=== PATIENT | female | born 1955 | race Caucasian/White ===

== ENCOUNTER 2020-11-11 09:18 | Outpatient (CLI) | payer MEDICARE, SELFPAY ==
--- NOTE | ~2020-11-11 | MM_ITS ---
EXAMINATION: MM screening [facility] BI w sukhjinder HISTORY: Screening mammogram TECHNIQUE: Craniocaudal and mediolateral oblique 3-D tomosynthesis images were obtained and synthetic 2-D images were generated. CAD analysis was submitted and interpreted. COMPARISON: 09/10/2018, 04/08/2017, 11/15/2015 BREAST PARENCHYMAL COMPOSITION: The breasts are heterogeneously dense, which may obscure small masses . FINDINGS: There is no evidence of suspicious mass, calcification, or architectural distortion to sugg est malignancy in either breast. There has been no suspicious interval change. IMPRESSION: 1. No mammographic evidence of malignancy. 2. Recommend routine screening mammography in one year. BI-RADS Category 1: Negative Reviewed, dictated and finalized at location A.
== END 2020-11-11 09:19 | disposition home or self-care (01) ==
LOC: ANHIMG 09:26
DX: Z12.31 Encounter for screening mammogram for malignant neoplasm of breast (principal)
CPT/HCPCS: 77063; 77067

== ENCOUNTER 2022-03-21 11:48 | Outpatient (CLI) | payer MEDICARE, SELFPAY ==
--- NOTE | ~2022-03-21 | MM_ITS ---
EXAMINATION: MM screening [facility] BI w sukhjinder HISTORY: Screening mammogram TECHNIQUE: Craniocaudal and mediolateral oblique 3-D tomosynthesis images were obtained and synthetic 2-D images were generated. CAD analysis was submitted and interpreted. COMPARISON: 11/11/2020, 09/10/2018, 04/08/2017 BREAST PARENCHYMAL COMPOSITION: The breasts are heterogeneously dense, which may obscure small masses . FINDINGS: There is no suspicious mass, calcification, or architectural distortion to suggest malignan cy in either breast. There has been no suspicious interval change. IMPRESSION: 1. No mammographic evidence of malignancy. 2. Recommend routine screening mammography in one year. BI-RADS Category 1: Negative Reviewed, dictated and finalized at location A.
== END 2022-03-21 11:49 | disposition home or self-care (01) ==
DX: Z12.31 Encounter for screening mammogram for malignant neoplasm of breast (principal)
CPT/HCPCS: 77063; 77067

== ENCOUNTER → 2023-07-24 11:11 | Outpatient (CLI) | payer MEDICARE, SELFPAY ==
--- NOTE | ~2023-07-24 | MM_ITS ---
EXAMINATION: MM screening [facility] BI w sukhjinder HISTORY: Screening mammogram TECHNIQUE: Craniocaudal and mediolateral oblique 3-D tomosynthesis images were obtained and synthetic 2-D images were generated. CAD analysis was submitted and interpreted. COMPARISON: 03/21/2022, 11/11/2020, 09/10/2018 BREAST PARENCHYMAL COMPOSITION: The breasts are heterogeneously dense, which may obscure small masses . FINDINGS: No suspicious mass, calcification, or architectural distortion are identified in either heath ast to suggest malignancy. There has been no suspicious interval change. IMPRESSION: 1. No mammographic evidence of malignancy. 2. Recommend routine screening mammography in one year. BI-RADS Category 1: Negative Reviewed, dictated and finalized at location A. [employer]
== END ==
PROVIDERS: PCP Obstetrics & Gynecology; Visit Provider Obstetrics & Gynecology
DX: Z12.31 Encounter for screening mammogram for malignant neoplasm of breast (principal)
CPT/HCPCS: 77063; 77067

== ENCOUNTER 2024-06-09 08:32 | Emergency (ER) | payer MEDICARE, SELFPAY ==
--- NOTE | 2024-06-09 08:42 | ED.URI ---
HPI - URI/Sore Throat General Chief Complaint: Ear Stated Complaint: left ear pain Time Seen by Provider: 06/09/24 08:42 Source: patient, RN notes reviewed and old records reviewed Mode of arrival: ambulatory Limitations: no limitations History of Present Illness HPI Narrative: 68-year-old female to [facility] with complaint of bilateral impacted earwax. Patient saw primary care doctor on May 21 and was advised to treat at home with water and peroxide. Patient states she has been doing so, however left ear discomfort started yesterday and she became concerned. Patient denies fever, recent illness, decreased hearing, allergies, pertinent medical history. Patient resting comfortably in exam room in no acute distress. Related Data Home Medications ?Medication ?Instructions ?Recorded ?Confirmed ?Last Taken ?Type citalopram 10 mg tablet mg 06/09/24 Unknown History metaxalone 800 mg tablet mg 06/09/24 Unknown History qhvpszbw-ctklxkmgo-nklqdczf 3.5 drp 06/09/24 Unknown History mg/mL-10,000 unit/mL-0.1% eye drops prednisolone acetate 1 % eye drp 06/09/24 Unknown History drops,suspension Allergies Allergy/AdvReac Type Severity Reaction Status Date / Time No Known Allergies Allergy Unverified 06/09/24 08:59 Review of Systems Review of Systems: All systems reviewed & are unremarkable except as noted in HPI and below Constitutional: Constitutional: Reports no additional constitutional complaints Eyes: Eyes: Reports no additional eye complaints ENT: Reports as per HPI and Reports otalgia ( Bilateral impacted wax. Pain on left) Cardiovascular: Cardiovascular: Reports no additional cardiovascular complaints, Denies chest pain and Denies dyspnea Respiratory: Respiratory: Reports no additional respiratory complaints, Denies cough and Denies dyspnea Musculoskeletal: Musculoskeletal: Reports no additional musculoskeletal complaints Neurologic: Reports system reviewed and no additional complaints, except as documented Psychiatric: Psychiatric: Reports no additional psychiatric complaints PMFSH Comments At the time of my signature, I reviewed and agree with the nursing past medical, surgical, social, and family history. There is no relevant family history pertinent to the patient complaint. Exam Const: General: cooperative, healthy appearing, comfortable, no acute distress, alert and well nourished Nutritional Appearance: well nourished Orientation/consciousness: patient oriented x3 Limitations: no limitations HENMT: Head: normal to inspection Ears: external ears normal and Abnormal EAC present cerumen impaction bilateral Face/Nose/Sinus: Normal external nose present, Normal nares present, normal facial exam, No erythema and No edema Face and sinus: normal facial exam, no erythema and no edema Mouth: Yes Normal oral and palatal mucosa present Eyes: General: appearance normal, both eyes and all related structures Neck: Neck: normal visual inspection, full ROM and no meningeal signs Lymphatic: no lymphadenopathy noted and no lymphedema noted Chest: Chest palpation & inspection: normal inspection of the chest Resp: Effort & Inspection: normal respiratory effort and able to speak in complete sentences Auscultation: clear to auscultation bilaterally Cardio: Jugular venous distension: no JVD Rate: regular rate Rhythm: regular rhythm Back/Spine/Pelvis: Cervical Spine: cervical ROM normal Skin: General skin exam: normal color, no rashes or lesions noted and turgor normal Neuro: General: patient oriented x3, gait normal, moves all extremities and no meningeal signs Speech: normal speech Gait exam (Neuro): Normal gait present Extrem: General: normal to inspection, full ROM and capillary refill normal Psych: Appearance: grossly normal and well kempt Course Course Emergency Course: Some parts of this dictation were generated by voice recognition software and may contain typographical and/or grammatical inaccuracies. Level of Care: Express Care Visit Vital Signs Vital signs: Vital Signs Temperature 36.6 C 06/09/24 08:44 Pulse Rate 74 06/09/24 08:44 Respiratory Rate 20 06/09/24 08:44 Blood Pressure 122/54 L 06/09/24 08:44 Pulse Oximetry 100 06/09/24 08:44 Oxygen Delivery Room Air 06/09/24 08:44 Temperature 36.6 C 06/09/24 08:44 Pulse Rate 74 06/09/24 08:44 Respiratory Rate 20 06/09/24 08:44 Blood Pressure 122/54 L 06/09/24 08:44 Pulse Oximetry 100 06/09/24 08:44 Oxygen Delivery Room Air 06/09/24 08:44 reviewed Procedures Ear Wax Removal Both Ears: Ear Wax Removal Date: 06/09/24 Results: Re-examined: cerumen removed completely TM Examination: TM(s) intact, normal appearance Ear Canal Exam: atraumatic Patient Tolerated Procedure: well and no complications Complications: no problems Technique: ear canal irrigated and ear canal curetted MDM - URI/Sore Throat MDM Narrative Medical decision making narrative: 68-year-old female to Express Care with complaint of bilateral impacted earwax. Patient saw primary care doctor on May 21 and was advised to treat at home with water and peroxide. Patient states she has been doing so, however left ear discomfort started yesterday and she became concerned. Patient denies fever, recent illness, decreased hearing, allergies, pertinent medical history. Patient resting comfortably in exam room in no acute distress. on exam, bilateral EACs intact with cerumen Pac. Removal was successful with lighted curette and irrigation. Patient tolerated well. Patient is sitting comfortably in exam room nontoxic in appearance. Patient appropriate for outpatient treatment and follow-up. Discharge instructions reviewed with patient, as well as provided in writing per nursing staff. The instructions also include specific and strict return/GO TO THE ER as well as f/u information. All questions have been answered, and the patient deny any further questions with discharge and discharge plan. Some parts of this dictation were generated by voice recognition software and may contain typographical and/or grammatical inaccuracies. Differential Diagnosis Differential diagnosis: Likely upper respiratory infection, croup, otitis media, sinusitis, viral infection, bronchitis, influenza and pharyngitis Discharge Plan Discharge Clinical Impression: Bilateral impacted cerumen, Acute otitis media, left Patient Disposition: Home, Self-Care Condition: Stable Instructions: Ear Infection (ED) Additional Instructions: please use antibiotic ear drops as directed please do not use any other products in your ear aside from the prescription ear drops for new or worsening symptoms please go to emergency department Patient Language: [place] Citizen Prescriptions: New ofloxacin 0.3 % drops 10 drp EACH EAR DAILY 7 Days Qty: 10 0RF No Action citalopram 10 mg tablet prednisolone acetate 1 % drops,suspension neomycin-polymyxin B-dexameth 3.5mg/mL-10,000 unit/mL-0.1 % drops,suspension metaxalone 800 mg tablet Follow-up/Referrals: PHYSICIAN NOT ON STAFF,NONSTAFF [Primary Care Provider] -
[2024-06-09 08:44] VITALS: BP 122/54; PULSE 74; RESP 20; TEMP 36.6; O2SAT 100
== END 2024-06-09 09:20 | disposition home or self-care (01) ==
PROVIDERS: Emergency Provider Nurse Practitioner Family
DX: H66.92 Otitis media, unspecified, left ear (principal); H61.23 Impacted cerumen, bilateral; F41.9 Anxiety disorder, unspecified; Z90.711 Acquired absence of uterus with remaining cervical stump
CPT/HCPCS: 69210; 99213; G0463

== ENCOUNTER 2024-10-08 10:05 | Outpatient (CLI) | payer MEDICARE, SELFPAY ==
--- NOTE | ~2024-10-08 | MM_ITS ---
EXAMINATION: MM screening maryam BI w sukhjinder HISTORY: Screening TECHNIQUE: Craniocaudal and mediolateral oblique 3-D tomosynthesis images were obtained and synthetic 2-D images were generated. CAD analysis was submitted and interpreted. COMPARISON: Comparison to multiple prior studies sequentially, with oldest reviewed study dated 11/14. BREAST PARENCHYMAL COMPOSITION: Dense: The breasts are heterogeneously dense, which may obscure small masses FINDINGS: There is no evidence of suspicious mass, calcification, or architectural distortion to sugg est malignancy in either breast. There has been no suspicious interval change. IMPRESSION: 1. No mammographic evidence of malignancy. 2. Recommend routine screening mammography in one year. BI-RADS Category 1: Negative Reviewed, dictated and finalized at location A.
--- OUTSIDE RECORDS SUMMARY | 2024-10-08 10:46 | XMS_ITS | Referral Summary ---
Author Organization [facility] Address [address] [place] [address] Care Team Providers Care Business Continuity Director Name Role Phone Janel Klein MD Primary Care Provider [phone] Allergies No known active allergies Medications cholecalciferol (VITAMIN D-3) 1,000 unit tablet Take 2,000 Units by mouth daily Active multivitamin capsule Take 1 capsule by mouth daily Active calcium carbonate (TUMS) 500 mg calcium (200 mg of elemental calcium) chewable tablet Take 1 tablet by mouth daily Active calcium carbonate (TUMS) 400 mg calcium (1,000 mg) tablet,chewable Take 2,000 mg by mouth daily Active prednisoLONE acetate (PRED FORTE) 1 % ophthalmic suspension Administer 1 drop into the right eye daily Active fish oil-dha-epa 1,200-144-216 mg capsule Take by mouth every other day Active vit C/E/Zn/coppr/jasmin tein/zeaxan (PRESERVISION AREDS-2 ORAL) Take by mouth daily Active metaxalone (SKELAXIN) 800 mg tabletIndicatio ns:Muscle Spasm Take 800 mg by mouth as needed for muscle spasms Active artificial tears (SYSTANE) 0.3 % gel Apply to both eyes as needed Active cyanocobalamin, vitamin B-12, 1,000 mcg/mL drops Take by mouth Active citalopram (CeleXA) 10 mg tablet Take 1 tablet (10 mg total) by mouth daily Active Active Problems Problem Noted Date Diagnosed Date Personal history of colonic polyps 08/29/2023 Family history of colon cancer 08/29/2023 Encounter for screening colonoscopy 08/29/2023 Well woman exam 01/22/2022 Overview (07/30/2023): 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 Due 2023 BMD:2020- told wnl. Gardasil: Assessment & Plan (01/22/2022 4:40 PM CDT): Complete exam done. rto 12m Ovaries not palpated today. Family history of colon cancer in father 019 Overview (09/01/2018): Added automatically from request for surgery [id number] Social History Tobacco Use Types Packs/Day Years Used Date Smoking Tobacco: Never Smokeless Tobacco: Never Alcohol Use Standard Drinks/Week Comments Yes 0 (1 standard drink = 0.6 oz pur e alcohol) occasionally Humiliation, Afraid, Rape, and Kick questionnair e Answer Date Recorded Within the last year, have y ou been afraid of your partner or ex-partner? No 01/22/2022 Within the last year, have y ou been humiliated or emotionally abused in other ways by your partner or ex-partner? No Within the last year, have y ou been kicked, hit, slapped, or otherwise physically hurt by your partner or ex-partner? No 01/22/2022 Within the last year, have y ou been raped or forced to have any kind of sexual activity by your partner or ex-partner? No 01/22/2022 AUDIT-C Answer Date Recorded Q1: How often do you have a drink containing alc ohol? 2-3 times a week 01/22/2022 Q2: How many drinks containi ng alcohol do you have on a typical day when you are drinking? 1 or 2 01/22/2022 Q3: How often do you have si x or more drinks on one occasion? Never 01/22/2022 PHQ-2 Answer Date Recorded PHQ-2 Total Score (If total score is 3 or more points, staff should administer the PHQ-9) 0 01/22/2022 Personal Safety Answer Date Recorded Have you ever been in or are you currently in a harmful physical or emotional relationship or is someone making you feel afraid or unsafe? Denies 05/25/2024 Comments No Sex and Gender Information Value Date Recorded Sex Assigned at Not on file Legal Sex Female 1:16 AM PRESS FEEDER Gender Identity Not on file Sexual Orientation Not on file Last Filed Vital Signs Vital Sign Reading Time Taken Comments Blood Pressure 115/79 05/25/2024 11:49 AM PRESS FEEDER Pulse 70 05/25/2024 11:49 AM PRESS FEEDER Temperature 36.9 C (98.5 F) 05/25/2024 11:49 AM PRESS FEEDER Respiratory Rate 16 05/25/2024 11:49 AM PRESS FEEDER Oxygen Saturation 100% 05/25/2024 11:49 AM PRESS FEEDER Inhaled Oxygen Concentration - - Weight 68.9 kg (152 lb) 05/25/2024 10:10 AM PRESS FEEDER Height 165.1 cm (5' 5 ) 05/25/2024 10:10 AM PRESS FEEDER Body Mass Index 25.29 05/25/2024 10:10 AM PRESS FEEDER Plan of Treatment Not on file Medical Devices Implanted Type Area Manager Park Device Identifier Shelf Expiration Date Model / Serial / Lot Total Cornea Transplant Right: Eye Procedures Procedure Name Priority Date/Time Associated Diagnosis Comments COLONOSCOPY 05/25/2024 10:18 AM PRESS FEEDER SCREENING MAMMOGRAM 2D BILATERAL Schedule Routine, Read Routine (OP Routine) 07/24/2023 8:39 AM PRESS FEEDER from Last 3 Months or Most Recently Relevant to Health Maintenance Results * Colonoscopy (05/25/2024 10:18 AM PRESS FEEDER) Anatomical Region Laterality Modality Other Narrative Procedure Note Jamshid Lisa MD - 05/25/2024 10:18 AM CST [facility] Patient Name: Delfina Davison Procedure Date: 05/25/2024 10:18AM Date of : 1955 Admit Type: Outpatient Age: 68 Gender: Female Attending MD: Jamshid Lisa M.D. Room: [facility] ENDOSCOPY ROOM 1 Note Status: Finalized Patient Profile: This is a 68 year old female. Father and a matrenal grandparen had colon. Procedure: Colonoscopy Indications: Screening in patient at increased risk: Familyhistory of 1st-degree relative with colorectal cancer, Last colonoscopy: August 2018 Referring MD: Janel Klein M.D. Providers: Jamshid Lisa M.D. Impression: - One 2 mm polyp in the distal ascending colon, removed with a jumbo cold forceps. Resected and retrieved. - Diverticulosis in the sigmoid colon. - Internal hemorrhoids. Recommendation: - Repeat colonoscopy in 5 years for screeningpurposes. - Continue present medications. Medicines: Monitored Anesthesia Care Complications: No immediate complications. Estimated Blood Loss: Estimated blood loss: none. Procedure: Pre-Anesthesia Assessment: - Prior to the procedure, a History and Physicalwas performed, and patient medications and allergieswere reviewed. The patient's tolerance of previous anesthesia was also reviewed. The risks andbenefits of the procedure and the sedation options and risks were discussed with the patient. All questions were answered, and informed consent was obtained. Prior Anticoagulants: The patient has taken noanticoagulant or antiplatelet agents. ASA Grade Assessment: Per anesthesia note and evaluation. After reviewing the risks and benefits, the patient was deemed in satisfactory condition to undergo the procedure. The benefits, risks and alternatives of theprocedure and sedation were discussed and informed consentwas obtained. All questions were answered. Please referto the signed informed consent document in the medical record. The bowel preparation used was Miralax via split dose instruction. The bowel preparation usedwas bisacodyl tablets via split dose instruction. The scope was passed under direct vision. The Pediatric Colonoscope PCF-H190L [id number] was introducedthrough the anus and advanced to the the cecum, identifiedby appendiceal orifice and ileocecal valve. Thequality of the bowel preparation was good. Bowel prep was administered using a split dose. Findings: The perianal and digital rectal examinations were normal. The cecum appeared normal. A 2 mm polyp was found in the distal ascending colon. The polyp was semi-sessile. The polyp was removed with a jumbo cold forceps.Resection and retrieval were complete. The descending colon and transverse colon appeared normal. Many small-mouthed diverticula were found in the sigmoid colon. Internal hemorrhoids were found during retroflexion. The hemorrhoids were small. Electronically signed by Jamshid Lisa M.D. Jamshid Lisa M.D. 05/25/2024 11:25:27 AM Number of Addenda: 0 Note Initiated On: 05/25/2024 10:18 AM Procedure Code(s): --- Professional --- 84669, Colonoscopy, flexible; with biopsy, single or multiple Diagnosis Code(s): --- Professional --- Z80.0, Family history of malignant neoplasm of digestive organs K64.8, Other hemorrhoids D12.2, Benign neoplasm of ascending colon K57.30, Diverticulosis of large intestine without perforation orabscess without bleeding CPT copyright 2020 [employer]. All rights reserved. The codes documented in this report are preliminary and upon car runner reviewmay be revised to meet current compliance requirements. Recognized by the [employer] for promoting quality in endoscopy us Jamshid Lisa MD ENDOSCOPY PROCEDURES Final Result * Screening Mammogram 2D Bilateral (07/24/2023 8:39 AM PRESS FEEDER) Anatomical Region Laterality Modality Breast Bilateral Mammography us Janel Corley MD IMG MAMMO PROCEDURE S Final Result from Last 3 Months or Most Recently Relevant to Health Maintenance Insurance [facility] AETNA MEDICARE [facility] MEDIC[facility] Address: [facility] [id number] [place] [address] Advance Directives For more information, please contact: [phone] * Full Code (Latest Code Status on File) Date Activated Date Inactivated Comments 05/25/2024 10:05 AM 05/25/2024 4:32 PM * Full Code Date Activated Date Inactivated Comments 05/25/2024 10:05 AM 05/25/2024 10:05 AM * Full Code Date Activated Date Inactivated Comments 09/17/2018 9:47 AM 09/17/2018 4:10 PM * Full Code Date Activated Date Inactivated Comments 09/17/2018 9:46 AM 09/17/2018 9:47 AM Care Teams Business Continuity Director Relationship Specialty Start Date End Date Janel Klein MD [address] [facility] [address] [place] [address] PCP - General Internal Medicine 01/22/22
--- OUTSIDE RECORDS SUMMARY | 2024-10-08 10:46 | XMS_ITS | Data Portability ---
Author Organization ROSALINO yates MD, autoContract Address [address] [place] [address] Care Team Providers Care Commutator Operator Name Role Phone KATHY YADAV Referring Provider [phone] JIMMIE GREGORIO Referring Provider [phone] JANEL LAZARO Referring Provider [phone] Assessment No assessment recorded. Plan of Treatment Reminders Order Date Submit Date Provider Last Modified By Organization Details Last Modified Time Details Appointments LUCILA benavides 2024 10:00A M Not available Not available Not available LUCILA AWP 2024 10:00A M Janel Klein MD Not available Not available Not available Lab None recorded . Referral None recorded . Procedures None recorded . Surgeries None recorded . Imaging None recorded . Medication Orders None recorded . Patient TargetsNo targets recorded. Patient InstructionsNo instructions recorded. Reason for Referral None Reported. Results Created Date Observation Date Name Description Value Unit Range Abnormal Flag Note LastModifiedBy Organization Detail LastModifiedTime 05/09/2005/09/2023 CBC WITH DIFFE RENTI AL WBC 6.0 K/uL 3.8-10 .8 Not Available [facility] - Manual Order Only [address], [place], [address], 05/16/2023 21:43:06 05/09/20 23 05/09/2023 CBC WITH DIFFE RENTI AL RBC 4.46 M/uL 3.80-5 .10 Not Available [facility] - Manual Order Only [address], [place], [address], 05/16/2023 21:43:06 05/09/20 23 05/09/2023 CBC WITH DIFFE RENTI AL hemoglobin 13.8 g/dL 11.7-1 5.5 Not Available [facility] - Manual Order Only [address], [place], [address], 05/16/2023 21:43:06 05/09/20 23 05/09/2023 CBC WITH DIFFE RENTI AL hematocrit 43.2 % 35.0-4 5.0 Not Available [facility] - Manual Order Only [address], [place], [address], 05/16/2023 21:43:06 05/09/20 23 05/09/2023 CBC WITH DIFFE RENTI AL MCV 96.9 fL 80.0-1 00.0 Not Available [facility] - Manual Order Only [address], [place], [address], 05/16/2023 21:43:06 05/09/20 23 05/09/2023 CBC WITH DIFFE RENTI AL MCH 30.9 pg 27.0-3 3.0 Not Available [facility] - Manual Order Only [address], [place], [address], 05/16/2023 21:43:06 05/09/20 23 05/09/2023 CBC WITH DIFFE RENTI AL MCHC 31.9 g/dL 32.0-3 6.0 low Not Available [facility] - Manual Order Only [address], [place], [address], 05/16/2023 21:43:06 05/09/20 23 05/09/2023 CBC WITH DIFFE RENTI AL red cell distribution width 13.2 % 11.0-1 5.0 Not Available [facility] - Manual Order Only [address], [place], [address], 05/16/2023 21:43:06 05/09/20 23 05/09/2023 CBC WITH DIFFE RENTI AL platelet count 245 K/uL 140-40 0 Not Available [facility] - Manual Order Only [address], [place], [address], 05/16/2023 21:43:06 05/09/20 23 05/09/2023 CBC WITH DIFFE RENTI AL mean platelet volume 12.8 fL 7.5-12 .5 high Not Available [facility] - Manual Order Only [address], [place], [address], 05/16/2023 21:43:06 05/09/20 23 05/09/2023 CBC WITH DIFFE RENTI AL neutrophil % 60.1 % 38.0-8 0.0 Not Available [facility] - Manual Order Only [address], [place], [address], 05/16/2023 21:43:06 05/09/20 23 05/09/2023 CBC WITH DIFFE RENTI AL neutrophil absolute 3.63 K/uL 1.50-7 .80 Not Available [facility] - Manual Order Only [address], [place], [address], 05/16/2023 21:43:06 05/09/20 23 05/09/2023 CBC WITH DIFFE RENTI AL lymphocyte % 33.7 % 15.0-4 9.0 Not Available [facility] - Manual Order Only [address], [place], [address], 05/16/2023 21:43:06 05/09/20 23 05/09/2023 CBC WITH DIFFE RENTI AL lymphocyte absolute 2.03 K/uL 0.85-3 .90 Not Available [facility] - Manual Order Only [address], [place], [address], 05/16/2023 21:43:06 05/09/20 23 05/09/2023 CBC WITH DIFFE RENTI AL monocyte % 3.2 % 0.0-13 .0 Not Available [facility] - Manual Order Only [address], [place], [address], 05/16/2023 21:43:06 05/09/20 23 05/09/2023 CBC WITH DIFFE RENTI AL monocyte absolute 0.19 K/uL 0.20-0 .95 low Not Available [facility] - Manual Order Only [address], [place], [address], 05/16/2023 21:43:06 05/09/20 23 05/09/2023 CBC WITH DIFFE RENTI AL eosinophil % 2.5 % 0.0-8. 0 Not Available [facility] - Manual Order Only [address], [place], [address], 05/16/2023 21:43:06 05/09/20 23 05/09/2023 CBC WITH DIFFE RENTI AL eosinophil absolute 0.15 K/uL 0.00-0 .50 Not Available [facility] - Manual Order Only [address], [place], [address], 05/16/2023 21:43:06 05/09/20 23 05/09/2023 CBC WITH DIFFE RENTI AL basophil % 0.5 % 0.0-2. 0 Not Available [facility] - Manual Order Only [address], [place], [address], 05/16/2023 21:43:06 05/09/20 23 05/09/2023 CBC WITH DIFFE RENTI AL basophil absolute 0.03 K/uL 0.00-0 .20 Not Available [facility] - Manual Order Only [address], [place], [address], 05/16/2023 21:43:06 05/09/20 23 05/09/2023 COMPR EHENS ALEKSEY METAB OLIC PANEL glucose 83 mg/dL 65-99 Not Available [facility] - Manual Order Only [address], [place], [address], 05/16/2023 21:43:07 05/09/20 23 05/09/2023 COMPR EHENS ALEKSEY METAB OLIC PANEL calcium 9.5 mg/dL 8.5-10 .5 Not Available [facility] - Manual Order Only [address], [place], [address], 05/16/2023 21:43:07 05/09/20 23 05/09/2023 COMPR EHENS ALEKSEY METAB OLIC PANEL sodium 141 mmol/ L 136-14 5 Not Available [facility] - Manual Order Only [address], [place], [address], 05/16/2023 21:43:07 05/09/20 23 05/09/2023 COMPR EHENS ALEKSEY METAB OLIC PANEL potassium 4.5 mmol/ L 3.5-5. 1 Not Available [facility] - Manual Order Only [address], [place], [address], 05/16/2023 21:43:07 05/09/20 23 05/09/2023 COMPR EHENS ALEKSEY METAB OLIC PANEL chloride 101 mmol/ L 95-108 Not Available [facility] - Manual Order Only [address], [place], [address], 05/16/2023 21:43:07 05/09/20 23 05/09/2023 COMPR EHENS ALEKSEY METAB OLIC PANEL CO2 (carbon dioxide) 29 mmol/ L 21-33 Not Available [facility] - Manual Order Only [address], [place], [address], 05/16/2023 21:43:07 05/09/20 23 05/09/2023 COMPR EHENS ALEKSEY METAB OLIC PANEL BUN (blood urea nitrogen) 15 mg/dL 8-[address] [facility] - Manual Order Only [address], [place], [address], 05/16/2023 21:43:07 05/09/20 23 05/09/2023 COMPR EHENS ALEKSEY METAB OLIC PANEL creatinine 0.68 mg/dL 0.50-1 .05 Not Available [facility] - Manual Order Only [address], [place], [address], 05/16/2023 21:43:07 05/09/20 23 05/09/2023 COMPR EHENS ALEKSEY METAB OLIC PANEL protein, total 6.7 g/dL 6.1-8. 0 Not Available [facility] - Manual Order Only [address], [place], [address], 05/16/2023 21:43:07 05/09/20 23 05/09/2023 COMPR EHENS ALEKSEY METAB OLIC PANEL albumin 4.3 g/dL 3.5-5. 5 Not Available [facility] - Manual Order Only [address], [place], [address], 05/16/2023 21:43:07 05/09/20 23 05/09/2023 COMPR EHENS ALEKSEY METAB OLIC PANEL globulin 2.4 g/dL_ (calc ) 1.8-3. 8 Not Available [facility] - Manual Order Only [address], [place], [address], 05/16/2023 21:43:07 05/09/20 23 05/09/2023 COMPR EHENS ALEKSEY METAB OLIC PANEL albumin/glob ulin ratio 1.8 calc 1.0-2. 5 Not Available [facility] - Manual Order Only [address], [place], [address], 05/16/2023 21:43:07 05/09/20 23 05/09/2023 COMPR EHENS ALEKSEY METAB OLIC PANEL alkaline phosphatase 64 U/L <150 Not Available [facility] - Manual Order Only [address], [place], [address], 05/16/2023 21:43:07 05/09/20 23 05/09/2023 COMPR EHENS ALEKSEY METAB OLIC PANEL alanine aminotransfe rase (ALT) 13 U/L 6-29 Not Available [facility] - Manual Order Only [address], [place], [address], 05/16/2023 21:43:07 05/09/20 23 05/09/2023 COMPR EHENS ALEKSEY METAB OLIC PANEL aspartate aminotransfe rase (AST) 18 U/L 10-35 Not Available [facility] - Manual Order Only [address], [place], [address], 05/16/2023 21:43:07 05/09/20 23 05/09/2023 COMPR EHENS ALEKSEY METAB OLIC PANEL bilirubin, total 0.8 mg/dL <1.[address] [facility] Order Only [address], [place], [address], 05/16/2023 21:43:07 05/09/20 23 05/09/2023 COMPR EHENS ALEKSEY METAB OLIC PANEL BUN/creatini ne ratio Not Applic able calc 6-22 Not Available [facility] - Manual Order Only [address], [place], [address], 05/16/2023 21:43:07 05/09/20 23 05/09/2023 COMPR EHENS ALEKSEY METAB OLIC PANEL eGFR 94 mL/mi n/1.7 3m_sq uared >59 The eGFR is based on the CKD-E PI 2020 equat ion. To calcu late the new eGFR from a previ ous Creat inine or Cysta tin C resul t, go to https ://liyah aguilar.o rg/pr ofess ional s/kdo qi/gf r%5Fc alcul ator. Not Available [facility] - Manual Order Only [address], [place], [address], 05/16/2023 21:43:07 05/09/20 23 05/09/2023 URIC ACID uric acid 3.6 mg/dL 2.5-7. 3 Not Available [facility] - Manual Order Only [address], [place], [address], 05/16/2023 21:43:07 05/09/20 23 05/09/2023 HEMOG LOBIN A1C HbA1C 5.3 % <5.7 For the purpo se of scree mark for the prese nce of diabe mehran: <5.7% is consi stent with the absen ce of diabe mehran; 5.7-6 .4% is consi stent with incre ased risk for diabe mehran (pred iabet es); >= 6.5% is consi stent with diabe mehran. This assay resul t is consi stent with a decre ased risk of diabe mehran. Curre ntly, no conse nsus exist s regar eddie use of hemog lobin A1c for diagn osis of diabe mehran in child seth. Accor ding to Ameri can Diabe mehran Assoc iatio n (ADA) guide lines , hemog lobin A1c <7.0% repre sents optim al contr ol in non-p regna nt diabe tic patie nts. Diffe rent metri cs may apply to speci fic patie nt popul ation s. Stand ards of Medic al Care in Diabe mehran (ADA) . Not Available [facility] - Manual Order Only [address], [place], [address], 05/16/2023 21:43:08 05/09/20 23 05/09/2023 HEMOG LOBIN A1C estimated average glucose 105 mg/dL <117 The estim ated avera ge gluco se value is an adjun ct to the treat ment of both Type I and Type II Diabe mehran. It is not inten ded for the diagn osis or risk asses sment of patie nts witho ut diabe mehran. (Refe rence : Jessica HINSON et al. Diabe mehran Care 2008; 31:14 73-14 78). Not Available [facility] - Manual Order Only [address], [place], [address], 05/16/2023 21:43:08 05/09/20 23 05/09/2023 LIPID PANEL W/ TG/HD L-C (ORDE RED WITH LIPOP ROTEI N, NMR) cholesterol, total 243 mg/dL <200 high Not Available [facility] - Manual Order Only [address], [place], [address], 05/16/2023 21:43:08 05/09/20 23 05/09/2023 LIPID PANEL W/ TG/HD L-C (ORDE RED WITH LIPOP ROTEI N, NMR) HDL cholesterol 80 mg/dL >49 Not Available [facility] - Manual Order Only [address], [place], [address], 05/16/2023 21:43:08 05/09/20 23 05/09/2023 LIPID PANEL W/ TG/HD L-C (ORDE RED WITH LIPOP ROTEI N, NMR) triglyceride s 70 mg/dL <150 Not Available [facility] - Manual Order Only [address], [place], [address], 05/16/2023 21:43:08 05/09/20 23 05/09/2023 LIPID PANEL W/ TG/HD L-C (ORDE RED WITH LIPOP ROTEI N, NMR) LDL cholesterol 146 mg/dL _(jennifer c) <100 high Malcolm able range <100 mg/dL for prima ry preve ntion ; <70 mg/dL for patie nts with CHD or diabe tic patie nts with >= 2 CHD risk facto rs. LDL-C is now calcu lated using the Jennifer n-Hop kins calcu kaylee n, which is a valid ated novel metho shaun thomas r accur acy than the Fried tanvir equat ion in the estim ation of LDL-C . Jennifer yates SS et al. KERRY. 2013; 310(1 9): 2061- 2068 (http ://ed ryanati on.Justin yanezIkonisys. com/f aq/FA Q164) Not Available [facility] - Manual Order Only [address], [place], [address], 05/16/2023 21:43:08 05/09/20 23 05/09/2023 LIPID PANEL W/ TG/HD L-C (ORDE RED WITH LIPOP ROTEI N, NMR) chol/HDL-C 3.0 calc <5.0 Not Available [facility] [address], [place], [address], 05/16/2023 21:43:08 05/09/20 23 05/09/2023 LIPID PANEL W/ TG/HD L-C (ORDE RED WITH LIPOP ROTEI N, NMR) non-HDL cholesterol 163 mg/dL _(jennifer c) <130 high For patie nts with diabe mehran plus 1 major ASCVD risk facto r, treat ing to a non-H DL-C goal of <100 mg/dL (LDL- C of <70 mg/dL ) is karlos masters optio n. Not Available [facility] - Manual Order Only [address], [place], [address], 05/16/2023 21:43:08 05/09/20 23 05/09/2023 LIPID PANEL W/ TG/HD L-C (ORDE RED WITH LIPOP ROTEI N, NMR) TG/HDL-C 0.9 calc <2.0 Not Available [facility] - Manual Order Only [address], [place], [address], 05/16/2023 21:43:08 05/09/20 23 05/09/2023 MYELO PEROX IDASE myeloperoxid ase 300 pmol/ L <470 Based on a high risk sub-p opula tion (N=92 0) defin ed as ambul atory stabl e patie nts witho ut acute coron jason syndr ome who under went elect aleksey diagn ostic coron jason angio graph y (1) and a refer ence range study of appar ently healt hy donor s, we have defin ed the follo wing cut-o ffs for MPO: A cut-o ff of <470 pmol/ L defin es an 'appa rentl y healt hy' popul ation at optim al relat aleksey risk for a cardi ovasc ular event , 470-5 39 pmol/ L defin es a popul ation at moder ate relat aleksey risk for a cardi ovasc ular event (2-fo ld incre ased risk of MACE at 3 years ), and > = 540 pmol/ L defin es a popul ation with a high relat aleksey risk for a cardi ovasc ular event . (Refe rence : 1. Haroldo et al. Am J Cardi ol. 2013; 111:4 65-47 0 and perso nal commu nicat ion with Haroldo et al). This test was sunil champagne and its dali tical perfo rmanc e jeny cteri stics have been deter mined by [facility] at [facility]. It has not been clear ed or appro radha by the U.S. Food and Drug Admin istra tion. This assay has been valid ated pursu ant to the CLIA regul ation s and is used for clini jennifer purpo ses. Not Available [facility] - Manual Order Only [address], [place], [address], 05/16/2023 21:43:09 05/09/20 23 05/09/2023 VITAM IN D 25 HYDRO XY LC-MS /MS vitamin D 25 hydroxy by lc-MS/MS 43.3 NG/mL >29.9 Vitam in D, 25-Hy droxy repor ts nawaf ntrat ions of two commo n forms , 25-OH D2 and 25-OH D3. 25-OH D3 indic ates both endog enous produ ction and suppl ement ation . 25-OH D2 is an indic ator of exoge nous sourc es, such as diet or suppl ement ation . Thera py is based on measu remen t of Total 25-OH D, with level s <20 ng/mL indic ative of Vitam in D defic iency , while level s betwe en 20 ng/mL and 30 ng/mL sugge st insuf ficie ncy. Optim al level s are >=30 ng/mL . For addit ional infor darien grijalva e refer to http: //[facility] catayo n.que stdia gnost ics.c om/fa q/FAQ 199(T his link is being provi ded for infor matayo n/[facility] catio nal purpo ses only. )This test was devel oped and its dali tical perfo rmanc e jeny cteri stics have been deter mined by [facility]. It has not been clear ed or appro radha by the U.S. Food and Drug Admin istra tion. This assay has been valid ated pursu ant to the CLIA regul ation s and is used for clini jennifer purpo ses. Not Available [facility] - Manual Order Only [address], [place], [address], 05/16/2023 21:43:09 05/09/20 23 05/09/2023 LIPOP ROTEI N FRACT IONAT ION, NMR W/LIP ID PANEL LDL-P 1664 nmol/ L <935 high Relat aleksey risk: Optim al <935; Moder ate 935-1 816; High >1816 nmol/ L. Refer ence range is 592-2 404 nmol/ L. This test was devel oped and its dali tical perfo rmanc e jeny cteri stics have been deter mined by [facility]. It has not been clear ed or appro radha by the U.S. Food and Drug Admin istra tion. This assay has been valid ated pursu ant to the CLIA regul ation s and is used for clini jennifer purpo ses. Not Available [facility] - Manual Order Only [address], [place], [address], 05/16/2023 21:43:10 05/09/20 23 05/09/2023 LIPOP ROTEI N FRACT IONAT ION, NMR W/LIP ID PANEL small LDL-P 204 nmol/ L <467 Relat aleksey risk: Optim al <467; Moder ate 467-8 20; High >820 nmol/ L. Refer ence range is <1408 nmol/ L. Not Available [facility] - Manual Order Only [address], [place], [address], 05/16/2023 21:43:10 05/09/20 23 05/09/2023 LIPOP ROTEI N FRACT IONAT ION, NMR W/LIP ID PANEL LDL size 21.6 nm >20.5 Relat aleksey risk: Optim al >20.5 ; High <20.6 nm. Refer ence range is 20.0- 22.3 nm. Not Available [facility] - Manual Order Only [address], [place], [address], 05/16/2023 21:43:10 05/09/2005/09/2023 LIPOP ROTEI N FRACT IONAT ION, NMR W/LIP ID PANEL HDL-P 39.2 umol/ L >32.8 Relat aleksey risk: Optim al >32.8 ; Moder ate 29.2- 32.8; High <29.2 umol/ L. Refer ence range is 21.1- 43.4 umol/ L. Not Available [facility] - Manual Order Only [address], [place], [address], 05/16/2023 21:43:10 05/09/20 23 05/09/2023 LIPOP ROTEI N FRACT IONAT ION, NMR W/LIP ID PANEL large HDL-P 15.2 umol/ L >7.2 Relat aleksey risk: Optim al >7.2; Moder ate 5.3-7 .2; High <5.3 umol/ L. Refer ence range is >3.5 umol/ L. Not Available [facility] - Manual Order Only [address], [place], [address], 05/16/2023 21:43:10 05/09/20 23 05/09/2023 LIPOP ROTEI N FRACT IONAT ION, NMR W/LIP ID PANEL HDL size 10.0 nm >9.0 Relat aleksey risk: Optim al >9.0; Moder ate 8.7-9 .0; High <8.7 nm. Refer ence range is 8.3-1 0.5 nm. Not Available [facility] - Manual Order Only [address], [place], [address], 05/16/2023 21:43:10 05/09/20 23 05/09/2023 LIPOP ROTEI N FRACT IONAT ION, NMR W/LIP ID PANEL large VLDL-P <1.5 nmol/ L <3.7 Relat aleksey risk: Optim al <3.7; Moder ate 3.7-6 .1; High >6.1 nmol/ L. Refer ence range is <16.0 nmol/ L. Not Available [facility] - Manual Order Only [address], [place], [address], 05/16/2023 21:43:10 05/09/20 23 05/09/2023 LIPOP ROTEI N FRACT IONAT ION, NMR W/LIP ID PANEL VLDL size 42.3 nm <47.1 Relat aleksey risk: Optim al <47.1 ; Moder ate 47.1- 49.0; High >49.0 nm. Refer ence range is 41.1- 61.7 nm. Not Available [facility] - Manual Order Only [address], [place], [address], 05/16/2023 21:43:10 05/07/20 24 05/07/2024 CBC WITH DIFFE RENTI AL WBC 6.0 K/uL 3.8-10 .8 Not Available [facility] - Manual Order Only [address], [place], [address], 05/15/2024 03:34:47 05/07/20 24 05/07/2024 CBC WITH DIFFE RENTI AL RBC 4.30 M/uL 3.80-5 .10 Not Available [facility] - Manual Order Only [address], [place], [address], 05/15/2024 03:34:47 05/07/20 24 05/07/2024 CBC WITH DIFFE RENTI AL hemoglobin 13.8 g/dL 11.7-1 5.5 Not Available [facility] - Manual Order Only [address], [place], [address], 05/15/2024 03:34:47 05/07/20 24 05/07/2024 CBC WITH DIFFE RENTI AL hematocrit 42.4 % 35.0-4 5.0 Not Available [facility] - Manual Order Only [address], [place], [address], 05/15/2024 03:34:47 05/07/20 24 05/07/2024 CBC WITH DIFFE RENTI AL MCV 98.6 fL 80.0-1 00.0 Not Available [facility] - Manual Order Only [address], [place], [address], 05/15/2024 03:34:47 05/07/20 24 05/07/2024 CBC WITH DIFFE RENTI AL MCH 32.1 pg 27.0-3 3.0 Not Available [facility] - Manual Order Only [address], [place], [address], 05/15/2024 03:34:47 05/07/20 24 05/07/2024 CBC WITH DIFFE RENTI AL MCHC 32.5 g/dL 32.0-3 6.0 For adult s, a sligh t decre ase in the calcu lated MCHC value (in the range of 30 to 32 g/dL) is most likel y not clini josé luis signi peyman t; natasha er, it shoul d be inter prete d with cauti on in corre latio n with other red cell benedicto eters and the patie nt's clini jennifer condi tion. Not Available [facility] - Manual Order Only [address], [place], [address], 05/15/2024 03:34:47 05/07/20 24 05/07/2024 CBC WITH DIFFE RENTI AL red cell distribution width 12.9 % 11.0-1 5.0 Not Available [facility] - Manual Order Only [address], [place], [address], 05/15/2024 03:34:47 05/07/20 24 05/07/2024 CBC WITH DIFFE RENTI AL platelet count 256 K/uL 140-40 0 Not Available [facility] - Manual Order Only [address], [place], [address], 05/15/2024 03:34:47 05/07/20 24 05/07/2024 CBC WITH DIFFE RENTI AL mean platelet volume 13.0 fL 7.5-12 .5 high Not Available [facility] - Manual Order Only [address], [place], [address], 05/15/2024 03:34:47 05/07/20 24 05/07/2024 CBC WITH DIFFE RENTI AL neutrophil % 60.6 % 38.0-8 0.0 Not Available [facility] - Manual Order Only [address], [place], [address], 05/15/2024 03:34:47 05/07/20 24 05/07/2024 CBC WITH DIFFE RENTI AL neutrophil absolute 3.67 K/uL 1.50-7 .80 Not Available [facility] - Manual Order Only [address], [place], [address], 05/15/2024 03:34:47 05/07/20 24 05/07/2024 CBC WITH DIFFE RENTI AL lymphocyte % 32.0 % 15.0-4 9.0 Not Available [facility] - Manual Order Only [address], [place], [address], 05/15/2024 03:34:47 05/07/20 24 05/07/2024 CBC WITH DIFFE RENTI AL lymphocyte absolute 1.93 K/uL 0.85-3 .90 Not Available [facility] - Manual Order Only [address], [place], [address], 05/15/2024 03:34:47 05/07/20 24 05/07/2024 CBC WITH DIFFE RENTI AL monocyte % 4.5 % 0.0-13 .0 Not Available [facility] - Manual Order Only [address], [place], [address], 05/15/2024 03:34:47 05/07/20 24 05/07/2024 CBC WITH DIFFE RENTI AL monocyte absolute 0.27 K/uL 0.20-0 .95 Not Available [facility] - Manual Order Only [address], [place], [address], 05/15/2024 03:34:47 05/07/20 24 05/07/2024 CBC WITH DIFFE RENTI AL eosinophil % 2.2 % 0.0-8. 0 Not Available [facility] - Manual Order Only [address], [place], [address], 05/15/2024 03:34:47 05/07/20 24 05/07/2024 CBC WITH DIFFE RENTI AL eosinophil absolute 0.13 K/uL 0.00-0 .50 Not Available [facility] - Manual Order Only [id number], [place], [address], 05/15/2024 03:34:47 05/07/20 24 05/07/2024 CBC WITH DIFFE DEENA AL bharti % 0.7 % 0.0-2. 0 Not Available [facility] - Manual Order Only [id number], [place], [address], 05/15/2024 03:34:47 05/07/20 24 05/07/2024 CBC WITH DIFFE DEENA AL basophil absolute 0.04 K/uL 0.00-0 .20 Not Available [facility] - Manual Order Only [address], [place], [address], 05/15/2024 03:34:47 05/07/20 24 05/07/2024 COMPR EHENS ALEKSEY METAB OLIC PANEL glucose 93 mg/dL 65-99 Not Available [facility] - Manual Order Only [address], [place], [place] [address], 05/15/2024 03:34:48 05/07/20 24 05/07/2024 COMPR EHENS ALEKSEY METAB OLIC PANEL calcium 9.7 mg/dL 8.5-10 .5 Not Available [facility] - Manual Order Only [address], [place], [address], 05/15/2024 03:34:48 05/07/20 24 05/07/2024 COMPR EHENS ALEKSEY METAB OLIC PANEL sodium 141 mmol/ L 136-14 5 Not Available [facility] - Manual Order Only [address], [place], [address], 05/15/2024 03:34:48 05/07/20 24 05/07/2024 COMPR EHENS ALEKSEY METAB OLIC PANEL potassium 4.7 mmol/ L 3.5-5. 1 Not Available [facility] - Manual Order Only [address], [place], [address], 05/15/2024 03:34:48 05/07/20 24 05/07/2024 COMPR EHENS ALEKSEY METAB OLIC PANEL chloride 102 mmol/ L 95-108 Not Available [facility] - Manual Order Only [address], [place], [address], 05/15/2024 03:34:48 05/07/20 24 05/07/2024 COMPR EHENS ALEKSEY METAB OLIC PANEL CO2 (carbon dioxide) 27 mmol/ L 21-33 Not Available [facility] - Manual Order Only [address], [place], [address], 05/15/2024 03:34:48 05/07/20 24 05/07/2024 COMPR EHENS ALEKSEY METAB OLIC PANEL BUN (blood urea nitrogen) 10 mg/dL 8-23 Not Available [facility] - Manual Order Only [address], [place], [address], 05/15/2024 03:34:48 05/07/20 24 05/07/2024 COMPR EHENS ALEKSEY METAB OLIC PANEL creatinine 0.70 mg/dL 0.50-1 .05 Not Available [facility] - Manual Order Only [address], [place], [address], 05/15/2024 03:34:48 05/07/20 24 05/07/2024 COMPR EHENS ALEKSEY METAB OLIC PANEL protein, total 7.1 g/dL 6.1-8. 0 Not Available [facility] - Manual Order Only [address], [place], [address], 05/15/2024 03:34:48 05/07/20 24 05/07/2024 COMPR EHENS ALEKSEY METAB OLIC PANEL albumin 4.5 g/dL 3.5-5. 5 Not Available [facility] - Manual Order Only [address], [place], [address], 05/15/2024 03:34:48 05/07/20 24 05/07/2024 COMPR EHENS ALEKSEY METAB OLIC PANEL globulin 2.6 g/dL_ (calc ) 1.8-3. 8 Not Available [facility] - Manual Order Only [address], [place], [address], 05/15/2024 03:34:48 05/07/20 24 05/07/2024 COMPR EHENS ALEKSEY METAB OLIC PANEL albumin/glob ulin ratio 1.7 calc 1.0-2. 5 Not Available [facility] - Manual Order Only [address], [place], [address], 05/15/2024 03:34:48 05/07/20 24 05/07/2024 COMPR EHENS ALEKSEY METAB OLIC PANEL alkaline phosphatase 71 U/L <150 Not Available [facility] - Manual Order Only [address], [place], [address], 05/15/2024 03:34:48 05/07/20 24 05/07/2024 COMPR EHENS ALEKSEY METAB OLIC PANEL alanine aminotransfe rase (ALT) 18 U/L 6-29 Not Available [facility] - Manual Order Only [address], [place], [address], 05/15/2024 03:34:48 05/07/20 24 05/07/2024 COMPR EHENS ALEKSEY METAB OLIC PANEL aspartate aminotransfe rase (AST) 24 U/L 10-35 Not Available [facility] - Manual Order Only [address], [place], [address], 05/15/2024 03:34:48 05/07/20 24 05/07/2024 COMPR EHENS ALEKSEY METAB OLIC PANEL bilirubin, total 0.8 mg/dL <1.[address] [facility] Order Only [address], [place], [address], 05/15/2024 03:34:48 05/07/20 24 05/07/2024 COMPR EHENS ALEKSEY METAB OLIC PANEL BUN/creatini ne ratio Not Applic able calc 6-22 Not Available [facility] - Manual Order Only [address], [place], [address], 05/15/2024 03:34:48 05/07/20 24 05/07/2024 COMPR EHENS ALEKSEY METAB OLIC PANEL eGFR 93 mL/mi n/1.7 3m_sq uared >59 The eGFR is based on the CKD-E PI 2020 equat ion. To calcu late the new eGFR from a previ ous Creat inine or Cysta tin C resul t, go to https ://liyah aguilar.o rg/pr ofess ional s/kdo qi/gf r%5Fc alcul ator. Not Available [facility] - Manual Order Only [address], [place], [address], 05/15/2024 03:34:48 05/07/20 24 05/07/2024 URIC ACID uric acid 3.9 mg/dL 2.5-7. 3 Not Available [facility] - Manual Order Only [address], [place], [address], 05/15/2024 03:34:49 05/07/20 24 05/07/2024 HEMOG LOBIN A1C HbA1C 5.5 % <5.7 For the purpo se of evette flores for the prese nce of diabe mehran: <5.7% is consi stent with the absen ce of diabe mehran; 5.7-6 .4% is consi stent with incre ased risk for diabe mehran (pred iabet es); >= 6.5% is consi stent with diabe mehran. This assay resul t is consi stent with a decre ased risk of diabe mehran. Curre ntly, no conse nsus exist s navdeep morgan use of hemog lobin A1c for diagn osis of diabe mehran in child seth. Accor eddie to Ameri can Diabe mehran Assoc iatio n (ADA) guide lines , hemog lobin A1c <7.0% repre sents optim al contr ol in non-p regna nt diabe tic patie nts. Diffe rent metri cs may apply to speci fic patie nt popul ation s. Stand ards of Medic al Care in Diabe mehran (ADA) . This test was perfo rmed on the Cindi freddy c503 platf orm. Effec tive 024, a dukes e in test platf orms from the [employer] [facility] to the Cindi freddy c503 may have shift ed HbA1c resul ts kely red to histo rical resul ts. Based on labor atory valid ation testi ng condu cted at [facility] , the Cindi platf orm relat aleksey to the [employer] platf orm had an avera ge incre ase in HbA1c value of <=0.3 %. This diffe rence is withi n accep lluvia varia bilit y estab lishe d by the Natio nal Gly[employer] hemog lobin Stand ardiz ation Progr am. Note that not all indiv idual s will have had a shift in their resul ts and direc t kely rison s betwe en histo rical and curre nt resul ts for testi ng condu cted on diffe rent platf orms is not recom mike d. Not Available [facility] - Manual Order Only [address], [place], [address], 05/15/2024 03:34:49 05/07/20 24 05/07/2024 HEMOG LOBIN A1C estimated average glucose 111 mg/dL <117 Not Available [facility] - Manual Order Only [address], [place], [address], 05/15/2024 03:34:49 05/07/20 24 05/07/2024 LIPID PANEL W/ TG/HD L-C (ORDE RED WITH LIPOP ROTEI N, NMR) cholesterol, total 251 mg/dL <200 high Not Available [facility] - Manual Order Only [address], [place], [address], 05/15/2024 03:34:50 05/07/20 24 05/07/2024 LIPID PANEL W/ TG/HD L-C (ORDE RED WITH LIPOP ROTEI N, NMR) HDL cholesterol 90 mg/dL >49 Not Available [facility] - Manual Order Only [address], [place], [address], 05/15/2024 03:34:50 05/07/20 24 05/07/2024 LIPID PANEL W/ TG/HD L-C (ORDE RED WITH LIPOP ROTEI N, NMR) triglyceride s 61 mg/dL <150 Not Available [facility] - Manual Order Only [address], [place], [address], 05/15/2024 03:34:50 05/07/20 24 05/07/2024 LIPID PANEL W/ TG/HD L-C (ORDE RED WITH LIPOP ROTEI N, NMR) LDL cholesterol 145 mg/dL _(jennifer c) <100 high Malcolm able range <100 mg/dL for prima ry preve ntion ; <70 mg/dL for patie nts with CHD or diabe tic patie nts with >= 2 CHD risk facto rs. LDL-C is now calcu lated using the Jennifer n-Hop kins calcu kaylee n, which is a valid ated novel zita sullivan accur acy than the Fried tanvir equat ion in the estim ation of LDL-C . Jennifer yates SS et al. KERRY. 2013; 310(1 9): 2061- 2068 (http ://ed ucati on.Qu ricardoDi Spotfav Reporting Technologiess. com/f aq/FA Q164) Not Available [facility] - Manual Order Only [address], [place], [address], 05/15/2024 03:34:50 05/07/20 24 05/07/2024 LIPID PANEL W/ TG/HD L-C (ORDE RED WITH LIPOP ROTEI N, NMR) chol/HDL-C 2.8 calc <5.0 Not Available [facility] - Manual Order Only [address], [place], [address], 05/15/2024 03:34:50 05/07/20 24 05/07/2024 LIPID PANEL W/ TG/HD L-C (ORDE RED WITH LIPOP ROTEI N, NMR) non-HDL cholesterol 161 mg/dL _(jennifer c) <130 high For patie nts with diabe mehran plus 1 major ASCVD risk facto r, treat ing to a non-H DL-C goal of <100 mg/dL (LDL- C of <70 mg/dL ) is consi anamaria masters optio n. Not Available [facility] - Manual Order Only [address], [place], [address], 05/15/2024 03:34:50 05/07/20 24 05/07/2024 LIPID PANEL W/ TG/HD L-C (ORDE RED WITH LIPOP ROTEI N, NMR) TG/HDL-C 0.7 calc <2.0 Not Available [facility] - Manual Order Only [address], [place], [address], 05/15/2024 03:34:50 05/07/20 24 05/07/2024 MYELO PEROX IDASE myeloperoxid ase 300 pmol/ L <470 Based on a high risk sub-p opula tion (N=92 0) defin ed as ambul atory stabl e patie nts witho ut acute coron jason syndr ome who under went elect aleksey diagn ostic coron jason angio graph y (1) and a refer ence range study of appar ently healt hy donor s, we have defin ed the follo wing cut-o ffs for MPO: A cut-o ff of <470 pmol/ L defin es an 'appa rentl y healt hy' popul ation at optim al relat aleksey risk for a cardi ovasc ular event , 470-5 39 pmol/ L defin es a popul ation at moder ate relat aleksey risk for a cardi ovasc ular event (2-fo ld incre ased risk of MACE at 3 years ), and > = 540 pmol/ L defin es a popul ation with a high relat aleksey risk for a cardi ovasc ular event . (Refe rence : 1. Haroldo et al. Am J Cardi ol. 2013; 111:4 65-47 0 and perso nal commu nicat ion with Haroldo et al). This test was devel mahi and its dali tical perfo rmanc e jeny cteri stics have been deter mined by [facility] [place] [facility] at [facility]. It has not been clear ed or appro radha by the U.S. Food and Drug Admin istra tion. This assay has been valid ated pursu ant to the CLIA regul ation s and is used for clini jennifer purpo ses. Not Available [facility] - Manual Order Only [address], [place], [address], 05/15/2024 03:34:51 05/07/20 24 05/07/2024 VITAM IN D 25 HYDRO XY LC-MS /MS vitamin D 25 hydroxy by lc-MS/MS 56.4 NG/mL >29.9 Vitam in D, 25-Hy droxy repor ts nawaf ntrat ions of two commo n forms , 25-OH D2 and 25-OH D3. 25-OH D3 indic ates both endog enous produ ction and suppl ement ation . 25-OH D2 is an indic ator of exoge nous sourc es, such as diet or suppl ement ation . Thera py is based on measu remen t of Total 25-OH D, with level s <20 ng/mL indic ative of Vitam in D defic iency , while level s betwe en 20 ng/mL and 30 ng/mL sugge st insuf ficie ncy. Optim al level s are >=30 ng/mL . For addit ional infor darien grijalva e refer to http: //aizza bowdenque stdia gnost ics.c om/fa q/FAQ 199(T his link is being provi ded for infor silvio n/edu catio nal purpo ses only. )This test was devel oped and its dali tical perfo rmanc e jeny cteri stics have been deter mined by [facility] [place] [facility]. It has not been clear ed or appro radha by the U.S. Food and Drug Admin istra tion. This assay has been valid ated pursu ant to the CLIA regul ation s and is used for clini jennifer purpo ses. Not Available [facility] - Manual Order Only [address], [place], [address], 05/15/2024 03:34:51 05/07/20 24 05/07/2024 LIPOP ROTEI N FRACT IONAT ION, NMR W/LIP ID PANEL LDL-P 1502 nmol/ L <935 high Relat aleksey risk: Optim al <935; Moder ate 935-1 816; High >1816 nmol/ L. Refer ence range is 592-2 404 nmol/ L. This test was devel oped and its dali tical perfo rmanc e jeny cteri stics have been deter mined by [facility]. It has not been clear ed or appro radha by the U.S. Food and Drug Admin istra tion. This assay has been valid ated pursu ant to the CLIA regul ation s and is used for clini jennifer purpo ses. Not Available [facility] - Manual Order Only [address], [place], [address], 05/15/2024 03:34:52 05/07/20 24 05/07/2024 LIPOP ROTEI N FRACT IONAT ION, NMR W/LIP ID PANEL small LDL-P 265 nmol/ L <467 Relat aleksey risk: Optim al <467; Moder ate 467-8 20; High >820 nmol/ L. Refer ence range is <1408 nmol/ L. Not Available [facility] - Manual Order Only [address], [place], [address], 05/15/2024 03:34:52 05/07/2005/07/2024 LIPOP ROTEI N FRACT IONAT ION, NMR W/LIP ID PANEL LDL size 21.4 nm >20.5 Relat aleksey risk: Optim al >20.5 ; High <20.6 nm. Refer ence range is 20.0- 22.3 nm. Not Available [facility] - Manual Order Only [address], [place], [address], 05/15/2024 03:34:52 05/07/20 24 05/07/2024 LIPOP ROTEI N FRACT IONAT ION, NMR W/LIP ID PANEL HDL-P 37.6 umol/ L >32.8 Relat aleksey risk: Optim al >32.8 ; Moder ate 29.2- 32.8; High <29.2 umol/ L. Refer ence range is 21.1- 43.4 umol/ L. Not Available [facility] - Manual Order Only [address], [place], [address], 05/15/2024 03:34:52 05/07/20 24 05/07/2024 LIPOP ROTEI N FRACT IONAT ION, NMR W/LIP ID PANEL large HDL-P 14.9 umol/ L >7.2 Relat aleksey risk: Optim al >7.2; Moder ate 5.3-7 .2; High <5.3 umol/ L. Refer ence range is >3.5 umol/ L. Not Available [facility] - Manual Order Only [address], [place], [address], 05/15/2024 03:34:52 05/07/20 24 05/07/2024 LIPOP ROTEI N FRACT IONAT ION, NMR W/LIP ID PANEL HDL size 10.0 nm >9.0 Relat aleksey risk: Optim al >9.0; Moder ate 8.7-9 .0; High <8.7 nm. Refer ence range is 8.3-1 0.5 nm. Not Available [facility] - Manual Order Only [address], [place], [address], 05/15/2024 03:34:52 05/07/20 24 05/07/2024 LIPOP ROTEI N FRACT IONAT ION, NMR W/LIP ID PANEL large VLDL-P <1.5 nmol/ L <3.7 Relat aleksey risk: Optim al <3.7; Moder ate 3.7-6 .1; High >6.1 nmol/ L. Refer ence range is <16.0 nmol/ L. Not Available [facility] - Manual Order Only [address], [place], [address], 05/15/2024 03:34:52 05/07/20 24 05/07/2024 LIPOP ROTEI N FRACT IONAT ION, NMR W/LIP ID PANEL VLDL size 43.6 nm <47.1 Relat aleksey risk: Optim al <47.1 ; Moder ate 47.1- 49.0; High >49.0 nm. Refer ence range is 41.1- 61.7 nm. Not Available [facility] - Manual Order Only [address], [place], [address], 05/15/2024 03:34:52 Result Notes None recorded. Problems Name Problem SNOMED Code Status Onset Date Resolution Date Notes Provider Name and Address Organization Details Recorded Time Glaucoma 44364600 Active 2015 Acute angle-humberto sure glaucoma, right eye; W/U Status: confirmed Not Available [facility] 3 06:17:12 Family history of alcoholis m 081694883 Active 2021 Family history of alcoholis m; W/U Status: confirmed Not Available [facility] 3 11:25:28 Family history of cancer of colon 548337471 Active 2014 Family history of colon cancer; W/U Status: confirmed Not Available [facility] 3 06:17:13 Vitamin D deficienc y 78465376 Active 2015 Vitamin D deficienc y; W/U Status: confirmed Not Available [facility] 3 06:17:13 Cervical radiculop athy 25019772 Active 2014 Cervical radiculop athy; W/U Status: confirmed Not Available [facility] 3 06:17:13 Allergic rhinitis 08734804 Active 2014 Allergic rhinitis; W/U Status: confirmed Not Available [facility] 3 06:17:13 Paresthes ia 81728737 Active 2014 Paresthes ia; W/U Status: confirmed Not Available [facility] 3 06:17:[address] Concept Active 2017 Anxiety; W/U Status: confirmed Not Available [facility] 3 06:17:14 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; W/U Status: confirmed Not Available [facility] 3 11:25:29 Multiple joint pain 39082136 Active 2014 Polyarthr algia; W/U Status: confirmed Not Available [facility] 3 06:17:14 Disorder of the periphera l nervous system 63600566 Active 2014 Periphera l neuropath y; W/U Status: confirmed Not Available [facility] 3 06:17:14 Hyperglyc emia 45471757 Active 2014 Hyperglyc emia; W/U Status: confirmed Not Available [facility] 3 06:17:14 Irritable bowel syndrome 21295186 Active 2014 Irritable bowel syndrome; W/U Status: confirmed Not Available [facility] 3 06:17:14 Degenerat aleksey disorder of macula 658333452 Active 2014 Macular degenerat ion; W/U Status: confirmed Not Available [facility] 3 06:17:14 Polyp of colon 52639877 Active 2014 Colon polyposis ; W/U Status: confirmed Not Available [facility] 3 06:17:14 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 563428923 Active 2021 Ashley present on residual alveolar ridge of maxilla; W/U Status: confirmed Not Available [facility] 3 06:17:15 History of hysterect lamont 489987334 Active 2021 S/P hysterect lamont; W/U Status: confirmed Not Available [facility] 3 06:17:15 Wears glasses 214096465 Active 2021 Wears glasses; W/U Status: confirmed Not Available [facility] 3 06:17:15 Gastroeso phageal reflux disease 638597178 Active 2014 GERD (gastroes ophageal reflux disease); W/U Status: confirmed Not Available [facility] 3 06:17:15 Low back pain 874204520 Active 2014 Low back pain; W/U Status: confirmed Not Available [facility] 3 06:17:16 Cervical kyphosis 664427692 Active 2021 Kyphosis of cervical region, unspecifi ed kyphosis type; W/U Status: confirmed Not Available [facility] 3 06:17:16 History of malignant neoplasm of cervix 692681021 Active 2021 History of cervical cancer; W/U Status: confirmed Not Available [facility] 3 06:17:16 Hyperlipi demia 55789201 Active 2014 Hyperlipi demia; W/U Status: confirmed Not Available [facility] 3 06:17:16 Candidias is of mouth 77821406 Active 2022 Janel Klein MD [address] [place] [address], [address] , ROSALINO Klein MD 3 13:11:34 Sarcopeni a 354656867 Active 2022 Janel Klein MD [address] [place] [address], [address] , ROSALINO Klein MD 3 17:24:47 Osteopeni a 295593989 Active 2022 Janel Klein MD [address] [place] [address], [address] , ROSALINO Klein MD 3 17:25:35 Caregiver stress syndrome 999525781 Active 2022 Janel Klein MD [address] [place] [address], [address] , ROSALINO Klein MD 3 11:34:46 Arthritis of hand 137076830 Active 2022 Janel Klein MD [address] [place] [address], [phone] , ROSALINO Klein MD 3 11:35:15 Atrophic vaginitis 16699661 Active 2022 Janel Klein MD [address] [place] [address], [phone] , ROSALINO Klein MD 4 12:39:55 Hearing loss of right ear 051591728 Active 2023 Janel Klein MD [address] [place] [address], [phone] , ROSALINO Klein MD 4 12:38:03 Pain in left lower limb 693493879 Active 2023 Janel Klein MD [address] [place] [address], [address] , ROSALINO Klein MD 4 14:08:18 Pterygium of right eye 66884963559 9101 Active 2023 Janel Klein MD [address] [place] [address], [address] , ROSALINO Klein MD 4 14:09:32 Cortical cataract 901648185 Active 2023 Janel Klein MD [address] [place] [address], [address] , ROSALINO Klein MD 4 14:09:56 Impacted cerumen of bilateral ears 43403677126 19198 Active 2023 Janel Klein MD [address] [place] [address], [address] , ROSALINO Klein MD 4 14:32:36 Statin declined 380371881 Active 2023 Janel Klein MD [address] [place] [address], [phone] , ROSALINO Klein MD 4 14:57:13 Problem Notes None recorded. Procedures Surgical History Date Name Laterality Status Provider Name and Address Organization Details Recorded Time 05/25/20 24 colonoscopy completed Janel Klein MD [address] [place] [address], [phone], ROSALINO Klein MD 05/26/2024 11:56:49 05/06/20 22 Most Recent Mammogram completed Janel Klein MD [address] [place] [address], [address], ROSALINO Klein MD 05/20/2023 11:14:54 09/30/19 19 Colonoscopy completed Heide Klein MD 05/25/2024 15:13:22 06/18/20 17 transplant of cornea of right eye completed Janel Klein MD [address] [place] [address], [address], ROSALINO Klein MD 05/21/2024 14:12:48 Imaging Results None recorded. Procedure Notes None recorded. Medical Equipment None Reported. Allergies Allergen ID Allergen Name Allergen Category Reaction Reaction Severity Criticality Documentation Date Start Date Code Code System Note Provider Name and Address Organization Details Recorded Time 4259 metronida zole medicatio n rash Not available Not available 12/21/2022 6922 RxNorm React ion: rash; Not Available [facility] 3 05:34:27 Medications Name Sig Start Date Stop Date Status Note LastModified by Organization Details LastModified Time nystatin 100,000 unit/mL oral suspensio n SHAKE LIQUID AND TAKE 5 ML BY MOUTH FOUR TIMES DAILY FOR 7 DAYS 11/03 /2023 completed Not Available Not Available Not Available Protonix 40 mg tablet,de layed release 1 tablet; 40 MG; QD; 90 days 2012 active Prepared By: Jacques Renee 3 12:08:04 PM Not Available Not Available Not Available ketoconaz ole 2 % shampoo APPLY TOPICALL Y 2 TIMES A WEEK. LEAVE ON FOR 5 MINUTES BEFORE RINSING 05/21 completed Not Available Not Available Not Available Ceftin 500 mg tablet 1 tablet; 500 MG; Twice a day; 10 day(s) 2015 active Prepared By: Jacques RENEE 6 12:54:38 PM Not Available Not Available Not Available Centrum Silver tablet 1 tablet; QD active Prepared By: Hilda Kleinistine Not Available Not Available Not Available ofloxacin 0.3 % eye drops active Not Available Not Available Not Available citalopra m 10 mg tablet 1/2 tab daily in am for 2 weeks then 1/2 tab qod x 1 week then 1 tab q 3 days x 2 then stop active Not Available Not Available No t Available Librax (with clidinium ) 5 mg-2.5 mg capsule 1 capsule before meals; 5-2.5 MG; TID PRN; 30 day(s) 2015 active Prepared By: Jacques RENEE Not Available Not Available Not Available Zithromax Z-Malcolm 250 mg tablet 2 tablet on the first day, then 1 tablet daily for 4 days; 250 MG; QD; 5 day(s) 2020 active Prepared By: Jacques RENEE 06/23/20 21 7:58:14 AM Not Available Not Available Not Available Flonase 50 mcg/actua tion nasal spray,lora pension 1 spray in each nostril; 50 MCG/ACT; QD PRN active Prepared By: Jacques RENEE Not Available Not Available Not Available Aleve 220 mg tablet 1 tablet; 220 MG; BID PRN active Prepared By: Jacques RENEE Not Available Not Available Not Available ofloxacin 0.3 % ear drops active Not Available Not Available Not Available alprazola m 0.25 mg tablet 1 tablet; 0.25 MG; TID PRN active Prepared By: Jacques RENEE Not Available Not Available Not Available Vitamin D3 10 mcg (400 unit) tablet 1 capsule; 400 UNIT; QD active Prepared By: Jacques RENEE Not Available Not Available Not Available prednisol one acetate 1 % eye drops,lora pension INSTILL 1 DROP INTO THE RIGHT EYE ONCE DAILY active Not Available Not Available No t Available Benefiber (guar gum) packet as directed ; 1-2 tsp; 1 QAM prn active Prepared By: Jacques Renee Not Available Not Available Not Available cephalexi n 500 mg capsule 1 capsule; 500 MG; TID; 10 days 2020 active Prepared By: Jacques RENEE 06/23/20 8:03:15 AM Not Available Not Available Not Available erythromy scottie 5 mg/gram (0.5 %) eye ointment active Not Available Not Available Not Available neomycin- polymyxin -dexameth 3.5 mg/mL-10, 000 unit/mL-0 .1% eye drops INSTILL 1 DROP IN THE LEFT EYE THREE TIMES DAILY FOR 7 DAYS 05/21 completed Not Available Not Available Not Available Mamta 128 2 % eye drops 1 drop OD; 2 %; TID active Prepared By: Jacques RENEE Not Available Not Available Not Available Advil 200 mg tablet 1 tablet; 200 MG; TID PRN active Prepared By: Hilda Klein hristine Not Available Not Available Not Available omeprazol e 20 mg capsule,d elayed release 1 capsule; 20 MG; QD active Prepared By: Jacques RENEE Not Available Not Available Not Available monteluka st 10 mg tablet TAKE 1 TABLET BY MOUTH EVERY DAY 05/03 completed Not Available Not Available Not Available Levaquin 500 mg tablet 1 tablet; 500 MG; Once a day; 10 days 2012 active Prepared By: Devan Mays 3 5:06:45 PM Not Available Not Available Not Available Tums 200 mg (as calcium carbonate 500 mg) chewable tablet 1000 mg twice a day by oral route. 2023 active Not Available Not Available Not Avai lable neomycin 3.5 mg/g-poly myxin B 10,000 unit/g-de xameth 0.1 % eye oint APPLY OINTMENT TO THE EYELID AREA TWICE DAILY 05/21 completed Not Available Not Available Not Available Homer 3 Fish Oil capsule 1200 mg every day by oral route. active Not Available Not Available No t Available metaxalon e 800 mg tablet TAKE 1 TABLET BY MOUTH THREE TIMES DAILY NEEDED 2024 active Not Available Not Available Not Avai lable Systane (propylen e glycol) 0.4 %-0.3 % eye drops 1-2 drops into affected eye; 0.4-0.3 %; QD PRN 2022 active Prepared By: Hilda Klein hristine Not Available Not Available Not Available Nasacort AQ 05/21 completed Not Available Not Available Not Available Multivita mins as directed ; QD active Prepared By: Jacques Renee Not Available Not Available Not Available mometason e 0.1 % topical solution APPLY TOPICALL Y TO THE AFFECTED AREA TWICE DAILY 05/21 completed Not Available Not Available Not Available Fish Oil 340 mg-1,000 mg capsule 1 capsule; 1000 MG; Once a day; 30 day(s) active Prepared By: Hilda Klein hristine Not Available Not Available Not Available Fish Oil 300 mg-1,000 mg capsule 1 capsule; 1000 MG; Once a day; 30 day(s) active Not Available Not Available No t Available Vitamin D3 50 mcg (2,000 unit) tablet 1 microgra m every day by oral route. active Not Available Not Available No t Available Astepro 1 drop in each nostril; BID PRN active Prepared By: Jacques RENEE Not Available Not Available Not Available ciproflox acin 0.2 % ear drops in a dropperet te 0.25 ml into affected ear; 0.2 %; BID; 10 days 2019 active Prepared By: Jacques RENEE 0 12:16:10 PM Not Available Not Available Not Available Fish Oil 360 mg-1,200 mg capsule 1 capsule; 1200 MG; QD active Prepared By: Jacques RENEE Not Available Not Available Not Available Astepro 205.5 mcg (0.15 %) nasal spray 1 drop in each nostril; 0.1%; BID PRN active Prepared By: Jacques RENEE Not Available Not Available Not Available B12 1000mcg active Not Available Not Avail able Not Available PreserVis ion AREDS-2 250 mg-90 mg-40 mg-1 mg capsule 1 capsule; -; QD active Prepared By: Hilda Klein hristine Not Available Not Available Not Available PreserVis ion AREDS-2 active Not Available Not Available Not Available Homer-3 Fish Oil 300 mg-1,000 mg capsule 1 capsule; 1000 MG; QD; 30 day(s) active Prepared By: Jacques Renee 2 9:35:05 AM Not Available Not Available Not Available Alena Sampson Women active Not Available Not Available Not Available Nexium 24HR 20 mg capsule,d elayed release 1 capsule; 20 MG; QD PRN active Prepared By: Jacques RENEE Not Available Not Available Not Available BinaxNOW COVID-19 Ag Self Test kit TEST DIRECTED TODAY 05/17 completed Not Available Not Available Not Available Vitals Date Recorded Body height Body mass index (BMI) Body weight Provider Name and Address Organization Details Last Updated DateTime 05/09/2023 163.83 cm 26 kg/m2 08680.22 g Nurys Klein MD 05/09/2023 10:02:20 Date Recorded Body height Body temperature Body mass index (BMI) Body weight Heart rate Oxygen saturation Oxygen saturation in Arterial blood by Pulse oximetry Systolic blood pressure Diastolic blood pressure Provider Name and Address Organization Details Last Updated DateTime 3 163.83 cm 97.6 [degF] 25.9 kg/m2 25595.6 3 g 67 /min 96 % 96 % 122 mm[Hg] 80 mm[Hg] Magda Klein MD 3 11:17:50 Date Recorded Body height Body mass index (BMI) Body weight Provider Name and Address Organization Details Last Updated DateTime 05/07/2024 165.1 cm 25.1 kg/m2 69987.45 g Nurys Klein MD 05/07/2024 11:04:10 Date Recorded Body height Body temperature Body mass index (BMI) Body weight Heart rate Oxygen saturation Oxygen saturation in Arterial blood by Pulse oximetry Systolic blood pressure Diastolic blood pressure Provider Name and Address Organization Details Last Updated DateTime 4 165.1 cm 98.3 [degF] 26 kg/m2 80407.4 1 g 52 /min 99 % 99 % 118 mm[Hg] 70 mm[Hg] Nat Klein MD 4 13:59:32 Social History Question Answer Notes LastModified by Organizat ion Details LastModified Time Tobacco Smoking Status Never Smoker Janel Klein MD [address], [address], [facility] [place] Janel Klein MD 05/20/2023 11:24:17 Do You Have An Advance Directive? No To Get Information not available 05/21/2024 What Is Your Level Of Alcohol Consumption? Occasional Cut Down quite A Bit Down To 3 A Week When Goes Out Information not available 05/21/2024 Are You Blind Or Do You Have Difficulty Seeing? No Glasses And [facility]td Eye Md Utd Dentist Information not available 05/21/2024 What Is Your Level Of Caffeine Consumption? Occasional Tea 3 X Week No Coffee Soda 3 X Week Information not available 05/21/2024 Are You Deaf Or Do You Have Serious Difficulty Hearing? No Information not available 05/20/2023 What Type Of Diet Are You Following? REGULAR Eats Out 3 X Week And Mostly [employer] Some Salads Information not available 05/20/2023 What Was The Date Of Your Most Recent Tobacco Screening? 05/21/2024 Information not available 05/21/2024 How Many Children Do You Have? -1 Information not available 05/20/2023 What Is Your Relationship Status? Information not available 05/20/2023 Has Tobacco Cessation Counseling Been Provided? Yes Information not available 05/21/2024 On What Date Was Tobacco Cessation Counseling Provided? 05/21/2024 Information not available 05/21/2024 Sex: Unknown Functional Status Question Answer Note LastModified by Organizat ion Details LastModified Time Are you able to walk? YESWOREST Information not available 05/20/2023 Are you able to care for yourself? Yes Information not available 05/20/2023 Do you have difficulty dressing or bathing? No Information not available 05/20/2023 What is your exercise level? Moderate walking daily Information not available 05/20/2023 Mental Status None recorded. Family History Nothing Reported Notes:FamilyHistoryDetails: COMMENTS:2 brother(s) Father: Notes: 85 yrs, Has had colon cancer, prior CVA, CHF, and is status post bilateral carotid endarterectomies. He also had a pacemaker/defibrillator placed., Mother: Notes: 72 yrs, She had pulmonary fibrosis, lung cancer, and coronary artery disease. She also had colonic polyps. alcoholic, , Brother had carotidenarterectomy and aortic valve repair. brother: alive and well no sisters Medical History No medical history recorded. Gynecological History Statement/Question Response Most Recent Mammogram 05/06/2022 Obstetrics History GPAL:G 0 P 0 0 0 0 Immunizations Vaccine Type Date Status Note Provider Nam e and Address Organization Details Recorded Time Tdap 5 completed Not Available [facility] 12/21/2022 06:17:33 SARS-COV-2 (COVID-19) vaccine, UNSPECIFIED 1 completed Not Available [facility] 12/21/2022 06:17:33 SARS-COV-2 (COVID-19) vaccine, UNSPECIFIED 1 completed Not Available [facility] 12/21/2022 06:17:33 SARS-COV-2 (COVID-19) vaccine, UNSPECIFIED 1 completed Not Available [facility] 12/21/2022 06:17:33 Past Encounters Encounter ID Performer Location Encounter Start Date Encounter Closed Date Diagnosis/Indication Diagnosis SNOMED-CT Code Diagnosis ICD10 Code Diagnosis Note [id number] Nat Quigley Main Office [address] [place] [address] [phone] 05/09/2023 09:57:59 05/09/2023 11:54:02 [id number] Janel Klein MD Main Office [address] [place] [address] [phone] 05/20/2023 11:10:51 05/20/2023 12:57:09 Adult health examination 201661727 Z00.00 As above. Gave my tips for a healthier you sheet. Reviewed labs/ work up with patient Sarcopenia 145042976 M62 .84 discussed building muscle with resistance bandsconsi david Silver sneakers. Osteopenia 802853930 M85 .80 to get bone density next year Cervical kyphosis 575018 001 M40.202 discussed posture Degenerati ve disorder of macula 104495421 H35.30 utd eye Glaucoma 45633423 H40.21 1 utd eye md History of malignant neoplasm of cervix 961377946 Z85.41 no signs recurrence Hyperlipidemia 03047950 E78.5 ldl not to goal. declines statin. Consider CL balance by [employer] Polyp of colon 52067970 K63.5 due for colonoscop y next spring Immunizati on education 181954876 Z71.85 discussed vaccine schedule Advance di rective discussed with patient 770948779 Z71.89 Caregiver stress syndrome 578506780 F43.89 please increase your citalopram to 20mg. Arthritis of hand 756110 005 M13.849 turmeric 400mg 2 x daygave my arthritis hand sheet. Atrophic vaginitis 27762 000 N95.2 consider coconut oil as needed or Revaree otc Vitamin D deficiency 347 76222 E55.9 please take 5000 iu/day with dinner for best absorption [id number] Nurys Shin Main Office [address] [place] [address] [phone] 05/07/2024 10:49:52 05/07/2024 11:04:42 [id number] Janel Klein MD Main Office [address] [place] [address] [phone] 05/21/2024 13:52:25 05/21/2024 15:08:10 General examination of patient 361457566 Z00.00 As above. Gave my tips for a healthier you sheet. Reviewed labs and workup with patient Caregiver stress syndrome 009011663 F43.89 doing well and wishes to wean off citalopram in a few months Degenerati ve disorder of macula 430749929 H35.30 utd eye Glaucoma 21453530 H40.21 1 utd eye History of malignant neoplasm of cervix 814841546 Z85.41 no signs recurrence . to see industrial diamond polisher Hyperlipidemia 91004075 E78.5 ldl not to goal. No change last 3 years. Declines statin Osteopenia 410125349 M85 .80 screening bone density shows osteopenia Polyp of colon 81155203 K63.5 colonoscop y scheduled Hearing lo ss of right ear 080773342 H91.91 to work on cerumen debridemen t and if no better, will see ENT Atrophic vaginitis 74454 000 N95.2 consider coconut oil as needed or Revaree otc Sarcopenia 958390569 M62 .84 discussed building muscle with resistance bandsconsi david Silver sneakers. Stand more Advance di rective discussed with patient 161113067 Z71.89 Still needs advanced directive Pain in le ft lower limb 913855328 M79.605 most likely from crossing legs so please try not to and massage the area in question Pterygium of right eye 1976845943 28555 H11.001 to get removed Cortical cataract 929731 003 H26.9 to get removed Medication declined 4061 43417 Z28.21 all Screening mammography 24 318765 Z12.31 scheduled Impacted c erumen of bilateral ears 6149022466 531853 H61.23 try daily mix hydrogen peroxide/ water 50:50 daily until comes out. Health Concerns Section Related Observation LastModified by Organization Detai ls LastModified Time None Recorded Concern Status LastModified by Organization Details LastModified Time None Recorded Advance Directives Directive N: to get Payers Encounter Date Sequence Insurance Name Policy Number Policy Estes Covered Member ID Estes Member ID Guarantor Name 05/09/2023 1 [employer] [id number] 1 Delfina Davison [id number] Delfina Davison 05/20/2023 1 [employer] [id number] 1 Delfina Davison [id number] Delfina Davison 05/07/2024 1 [employer] (MEDICARE REPLACEMENT PPO) [id number] 1 Delfina Davison [id number] Delfina Davison 05/21/2024 1 [employer] (MEDICARE REPLACEMENT PPO) [id number] 1 Delfina Davison [id number] Delfina Davison Notes Date Note Type Note Provider Name and Address Organization Details Recorded Time 05/20/2023 text/html Your myeloperoxi dase is normal but your total and LDL cholesterol and LDL particle number are all elevated. The rest of your labs are goodTaking 1/2 citalopram and may want to increasemammogram is scheduled for Janneeds crown repaired so to see dentistutd eye . all good with glasses.due for colonoscopy next spring.will put bone density off a bit to take care of all above Janel Klein MD [address] [place] [address], [phone], ROSALINO Klein MD 05/20/2023 12:40:57 05/21/2024 text/html Wishes to wean o ff citalopram next Aug.c/o left lateral proximal leg pain--burning. does cross her legs.has a pterygium right eye she is to get removed then a cataract on the right.reviewed her life line screening results. all good.colonoscopy scheduled for next weekmmg scheduled for next year. Janel Klein MD [address] [place] [address], [phone], ROSALINO Klein MD 05/21/2024 14:58:59 OBGyn Episode No OBEpisode recorded.
--- OUTSIDE RECORDS SUMMARY | 2024-10-08 10:46 | XMS_ITS | Clinical Summary ---
Author Organization [facility] Address [address] [place] [address] Care Team Providers Care Supervisor Shipping Name Role Phone Janel Klein MD Primary Care Provider [phone] Allergies No known active allergies Medications cholecalciferol [...] (09/01/2018): Added automatically from request for surgery [id number] Surgical History Surgery Date Site/Laterality Comments OTHER SURGICAL HISTORY 07/01/1992 - 06/30/1993 cervical surgery PARTIAL HYSTERECTOMY 07/01/1993 - 06/30/[address]DO [address] Gallagher POLYPECTOMY COLONOSCOPY 12/05/2012 CATARACT EXTRACTION 07/01/2016 - 06/30/2017 Right COLONOSCOPY 08/29/2018 - 09/28/2018 COLONOSCOPY 05/25/2024 Medical History Medical History Date Comments Colon polyp GERD (gastroesophageal reflux disease) Cataract Cervical dysplasia 08/22/1993 Encounter for cholecystectomy 1982 History of cervical discectomy 1992 Cornea transplant recipient 05/2016 High cholesterol Dryness of vagina 2016 Family History Medical History Relation Name Comments Colon cancer Father Cancer, colon; Heart disease Father Other Father Alive and well; Rheumatic fever Father Colon cancer Maternal Grandmother Diabetes Mother Heart disease Mother Hypertension Mother Lung cancer Mother Cancer -lung; C ause of : Cancer -lung Diabetes Paternal Grandfather Cancer Neg Hx no breast or gy n cancer cmt 01/22/22 Relation Name Status Comments Father Alive Maternal Grandmother Mother (Age 71) Paternal Grandfather Social History Tobacco Use Types Packs/Day Years [...] on file Legal Sex Female 1:16 AM DEPARTMENT STORE GENERAL MANAGER Gender Identity Not on file Sexual Orientation Not on file Obstetrics History Para Term AB IAB SAB Ectopic Multiple Livin g Live Births 0 0 0 0 0 0 0 0 0 0 0 Last Filed Vital Signs Vital Sign Reading Time Taken Comments Blood Pressure 115/79 05/25/2024 11:49 AM DEPARTMENT STORE GENERAL MANAGER Pulse 70 05/25/2024 11:49 AM DEPARTMENT STORE GENERAL MANAGER Temperature 36.9 C (98.5 F) 05/25/2024 11:49 AM DEPARTMENT STORE GENERAL MANAGER Respiratory Rate 16 05/25/2024 11:49 AM DEPARTMENT STORE GENERAL MANAGER Oxygen Saturation 100% 05/25/2024 11:49 AM DEPARTMENT STORE GENERAL MANAGER Inhaled Oxygen Concentration - - Weight 68.9 kg (152 lb) 05/25/2024 10:10 AM DEPARTMENT STORE GENERAL MANAGER Height 165.1 cm (5' 5 ) 05/25/2024 10:10 AM DEPARTMENT STORE GENERAL MANAGER Body Mass Index 25.29 05/25/2024 10:10 AM DEPARTMENT STORE GENERAL MANAGER Plan of Treatment Health Maintenance Due Date Last Done Comments Fall Risk Assessment 1955 Hepatitis C Screening 1955 Osteoporosis Screening-Bone Density Scan 1955 Hepatitis B Screening 1972 Pneumococcal vaccine 65+ (1 of 1 - PCV) 2004 Zoster Vaccine (1 of 2) 2004 Well Visit 65+ 2019 Depression Screening 01/22/2023 01/22/2022 Covid-19 Vaccine (4 - 2023-2 5 season) 2024 06/05/2021, 09/17/2020, 08/27/2020 Influenza Vaccine (#1) 2024 Breast Cancer Screening-Mammogram 07/24/2024 07/24/2023, 04/08/2017, 11/15/2015, Additional history exists DTaP/Tdap/Td Vaccine (2 - Td or Tdap) 10/13/2024 10/13/2014 Colon Cancer Screening-Colonoscopy 05/25/2034 05/25/2024, 09/17/2018, 12/05/2012 Colon Cancer Screening-CT Colonography Discontinued 05/25/2024, 09/17/2018, 12/05/2012 Colon Cancer Screening-DNA Stool Discontinued 05/25/2024, 09/17/2018, 12/05/2012 Colon Cancer Screening-FIT Discontinued 05/25, 09/17/2018, 12/05/2012 Colon Cancer Screening-Sigmoidoscopy Discontinued 05/25/2024, 09/17/2018, 12/05/2012 Medical Devices Implanted Type Area Medical Collections Specialist Device Identifier Shelf Expiration Date Model / Serial / Lot Total Cornea Transplant Right: Eye Procedures Procedure Name Priority Date/Time Associated Diagnosis Comments COLONOSCOPY 05/25/2024 10:18 AM DEPARTMENT STORE GENERAL MANAGER SCREENING MAMMOGRAM 2D BILATERAL Schedule Routine, Read Routine (OP Routine) 07/24/2023 8:39 AM DEPARTMENT STORE GENERAL MANAGER from Last 3 Months or Most Recently Relevant to Health Maintenance Results * Colonoscopy (05/25/2024 10:18 AM DEPARTMENT STORE GENERAL MANAGER) Anatomical Region Laterality Modality Other Narrative Procedure Note Jamshid Lisa MD - 05/25/2024 10:18 AM CST [facility] Patient Name: Delfina Davison Procedure Date: 05/25/2024 10:18AM Date of : 1955 Admit Type: Outpatient Age: 68 Gender: Female Attending MD: Jamshid Lisa M.D. Room: [facility] ENDOSCOPY ROOM 1 Note Status: Finalized Patient [...] under direct vision. The Pediatric Colonoscope PCF-H190L [id number] was introducedthrough the anus and advanced to [...] 10:18 AM Procedure Code(s): --- Professional --- 07766, Colonoscopy, flexible; with biopsy, single or multiple Diagnosis Code(s): --- Professional --- Z80.0, Family history of malignant neoplasm of digestive organs K64.8, Other hemorrhoids D12.2, Benign neoplasm of ascending colon K57.30, Diverticulosis of large intestine without perforation orabscess without bleeding CPT copyright 2020 [employer]. All rights reserved. The codes documented in this report are preliminary and upon oil winterizer reviewmay be revised to meet current compliance requirements. Recognized by the [employer] for promoting quality in endoscopy Jamshid Lisa MD ENDOSCOPY PROCEDURES Final Result * Screening Mammogram 2D Bilateral (07/24/2023 8:39 AM DEPARTMENT STORE GENERAL MANAGER) Anatomical Region Laterality Modality Breast Bilateral Mammography Janel Corley MD IMG MAMMO PROCEDURE S Final Result from Last 3 Months or Most Recently Relevant to Health Maintenance [facility] Address: [address] [place] [address] Advance Directives For more information, please contact: [phone] * Full Code (Latest Code Status on File) Date Activated Date Inactivated Comments 05/25/2024 10:05 AM 05/25/2024 4:32 PM * Full Code Date Activated Date Inactivated Comments 05/25/2024 10:05 AM 05/25/2024 10:05 AM * Full Code Date Activated Date Inactivated Comments 09/17/2018 9:47 AM 09/17/2018 4:10 PM * Full Code Date Activated Date Inactivated Comments 09/17/2018 9:46 AM 09/17/2018 9:47 AM Care Teams Supervisor Shipping Relationship Specialty Start Date End Date Janel Klein MD [address] [facility] [address] [place] [address] PCP - General Internal Medicine 01/22/22
--- OUTSIDE RECORDS SUMMARY | 2024-10-08 10:46 | XMS_ITS | Continuity of Care Document ---
Author Organization [facility] Address [address] [place] [address] Phone Care Team Providers Care Glazier Structural Glass Name Role Phone Mica Martin Unavailable Unavailable Allergies, Adverse Reactions, Alerts Substance Reaction Status Criticality No Known Allergies Active No Inform ation Medications Medication Instructions Dosage Effective Dates (start - stop) Status Comments NEXIUM (unknown strength) take 1 capsule by oral route every day Not Available - Active ASTEPRO (unknown strength) spray 1 spray by intranasal route 2 times every day in each nostril Not Available - Active CENTRUM SILVER ULTRA WOMEN'S (unknown strength) Not Available - Active TUMS (unknown strength) Not Available - Active FLONASE (unknown strength) Not Available - Active SYSTANE (unknown strength) Not Available - Active SKELAXIN (unknown strength) Not Available - Active Vagifem 10 mcg Vaginal Tab insert 1 tablet (10MCG) by vaginal route 2 times every week 10 MCG - No Longer Active VITAMIN D3 (unknown strength) Not Available - No Longer Active FISH OIL (unknown strength) Not Available - No Longer Active Procedures Procedure Date PREV VISIT EST AGE 40-64 PREV VISIT EST AGE 40-64 PREV VISIT EST AGE 40-64 PREV VISIT EST AGE 40-64 Advance Directives Directive Yes / No Effective Date File Name No Information Encounters Encounter Description Practice Location Reason(s) For Visit Diagnoses Date Provider Providers Copied on Encounter PREV VISIT EST AGE 40-64 [facility] [employer] [address] [address], [place], [address], [place] tel:[phone] [facility] WWE (chief complaint) 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 [address], [place], [place], [id number]. tel:[phone] PREV VISIT EST AGE 40-64 [facility] [employer] [address], [place], [address], [place] tel:[phone] [facility] annual exam (chief complaint) ROUTINE WATER MANAGER EXAMINATIONFami ly Hx Colon CancerAbnormal mammogram 8 [address] Hel[address], [place], [place], [address]. tel:[phone] PREV VISIT EST AGE 40-64 [facility] [employer] [address], [place], [address], tel:[phone] [facility] annual visit (chief complaint) Well Woman / Routine Timber Trimmer/PapFamily Hx Colon Cancer [address], [place], [place], [address]. tel:[phone] PREV VISIT EST AGE 40-64 [facility] [employer] [address], [place], [address], [place] tel:[phone] [facility] annual visit (chief complaint) Well Woman / Routine Timber Trimmer/PapFamily Hx Colon Cancer 3 [address] Hel[address], [place], [place], [address]. tel:[phone] [facility] , [address], [place], [address], [place] tel:[phone] [facility] No Information - 3 Gavin Hamsa. [address], [place], [place], [id number]. tel:[phone] [facility] [employer] [address], [place], [address], [place] tel:[phone] [facility] annual visit (chief complaint) Well Woman / Routine Timber Trimmer/PapPostmeno pausal atrophic vaginitisPostme nopausal atrophic vaginitis 2 Betsey Moon. [address], [place], [place], [address]. tel:[phone] [facility] [employer] [address], [place], [address], tel:[phone] [facility] Dysplasia of cervix, unspecifiedFami ly Hx Colon CancerIrritable Colon 2 [address] Chanine. [address], [place], [place], [address]. tel:[phone] Family History Family Member Type Diagnosis Age At Onset Mother Problem (finding) coronary arterioscleros is Father Problem (finding) cancer of colon Maternal grandmother Problem (finding) cancer of colon Mother Problem (finding) Maternal histo ry of diabetes mellitus Father Problem (finding) stroke Mother Problem (finding) malignant neoplasm of l laine Payers Payer name Insurance type Covered alliance party ID Authoriza tion(s) No Information Social History Type Description Quantity Date Captured Comments Sex Female Smoking Status No Information Chief Complaint And Reason For Visit No Information Reason For Referral Reason For Referral No Information Plan Of Treatment Date Type Action Status Future Order: Lab Order SUREPATH LIQUID-BASED PAP TEST ([id number]), Ordered on: Ordered History Of Present Illness Encounter Date Complaint History Of Prese nt Illness [facility] GRA[facility] in '94 for cervical dysplasiaHas had normal vag paps for last 22 yrsDue for cotesting today, perhaps her last??Minimal arcelia complaints, no HRTDoes have some vaginal dryness, but nothing she wants to do anything aboutBladder okayHad breast bx last October for worriesome breast tissue, normal and back to routine screeningGoing for mammo on SaturdayNon smokerNo concerns annual exam The patient stat es she uses menopausal and hysterectomy for control.Postmenopausal. The patient does not use tobacco. She has not been exposed to passive smoke. She does drink alcohol. Additional information: No complaints except for vaginal symptoms. Using OTC but not liking it but not wanting estrogen. Rec Crisco etc. Being followed for areas on maryam and due to annual. Saw Dr Moreno. No other changes. Up to date otherwise. Functional Status Date Functional Assessmen t No Information Instructions Date Instruction Additional Infor misael Reviewed screening f or mammo, colonoscopy, and DEXACBEEvaluation of menopausal S/SEncouraged calcium and vitamin D intakePt requested order for routine mammo screening and other views as indicated - written. 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
--- OUTSIDE RECORDS SUMMARY | 2024-10-08 10:46 | XMS_ITS | Clinical Summary ---
Author Organization [facility] Address [address] [place] [address] Care Team Providers Care Pot Filler Name Role Phone Jacques Renee MD Primary Care Provider [phone] Source Comments [facility],non-owned Affiliates and Associated Physician Practices is amultiple site organization consisting of ambulatory clinics and hospital sitesin [place], [place], [place] and [place]. This disclosure is being madepursuant to the Care Everywhere program and may not contain all information available regarding this patient. Last updated 18.[facility] Allergies No known active allergies Medications Be aware that medications may not be up to date on this document. Always verify current medications with the patient. No known medications Active Problems Problem Noted Date Diagnosed Date Glaucoma 11/19/2016 Family History Medical History Relation Name Comments CVA Father 87 Cancer - Colon Father Cancer - Colon Maternal Grandmother CAD (Coronary Artery Disease) Mother Cancer - Lung Mother 71 Diabetes - Type 2 Mother Relation Name Status Comments Father Maternal Grandmother Mother Social History Tobacco Use Types Packs/Day Years Used Date Smoking Tobacco: Never Sex and Gender Information Value Date Recorded Sex Assigned at Not on file Gender Identity Female Sexual Orientation Not on file Last Filed Vital Signs Vital Sign Reading Time Taken Comments Blood Pressure 126/62 11/19/2016 11:10 AM CDT Pulse - - Temperature - - Respiratory Rate - - Oxygen Saturation - - Inhaled Oxygen Concentration - - Weight 67.6 kg (149 lb) 11/19/2016 11:10 AM CDT Height 166.4 cm (5' 5.5 ) 11/19/2016 11:10 AM CD T Body Mass Index 24.42 11/19/2016 11:10 AM CDT Plan of Treatment Health Maintenance Due Date Last Done Comments COLOGUARD (AGES 45-75) - COL ON CA SCREENING 1954 COLON MONITORING 1954 COLONOSCOPY - COLON CA SCREENING 1954 CT COLONOGRAPHY - COLON CA SCREENING 1954 Colorectal Cancer Screening 1954 FIT - COLON CA SCREENING 1954 FLEX SIG - COLON CA SCREENING 1954 LIPID TESTING 1954 HEPATITIS C SCREENING 06/19/1972 DTAP/TDAP/TD VACCINES (1 - Tdap) 1973 PNEUMOCOCCAL VACCINE 50+ (1 of 1 - PCV) 2004 ZOSTER VACCINE (1 of 2) 2004 MAMMOGRAM 04/08/2019 04/08/2017, 04/08/2017 COVID-19 VACCINE ( - 2023-2 5 season) 2024 DEPRESSION SCREENING 07/01/2024 INFLUENZA VACCINE (Season Ended) 2025 Respiratory Syncytial Virus (RSV) Vaccine Pt: or over 60 yrs (1 - 1-dose 75+ series) 2029 BONE DENSITY TESTING Completed 04/08/2017 HEPATITIS B VACCINE Aged Out No longe r eligible based on patient's age to complete this topic HIB VACCINE Aged Out No longer eligi ble based on patient's age to complete this topic HPV VACCINE Aged Out No longer eligi ble based on patient's age to complete this topic MENINGOCOCCAL (Group B) VACCINE SHARED DECISION-MAKING Aged Out No longer eligible based on patient's age to complete this topic MENINGOCOCCAL GROUPS A/C/Y/W VACCINE Aged Out No longer eligible b ased on patient's age to complete this topic Procedures Procedure Name Priority Date/Time Associated Diagnosis Comments DEXA BONE DENSITY 2 SITES Routine 04/08/2017 MAMMO SCREENING BILATERAL Routine 04/08/2017 from Last 3 Months or Most Recently Relevant to Health Maintenance Results * MAMMO SCREENING BILATERAL (04/08/2017) Anatomical Region Laterality Modality Breast Mammography Jacques Renee MD MAMMO ORDERABLES * DEXA BONE DENSITY 2 SITES (04/08/2017) Anatomical Region Laterality Modality Other Jacques Renee MD DEXA ORDERABLES from Last 3 Months or Most Recently Relevant to Health Maintenance Care Teams Pot Filler Relationship Specialty Start Date End Date Jacques Renee MD [address] [place] [id number] PCP - General Internal Medicine 11/19/16
--- OUTSIDE RECORDS SUMMARY | 2024-10-08 10:46 | XMS_ITS | Clinical Summary ---
Author Organization [employer] [facility] [address] Address [address] [place] [address] Phone Care Team Providers Care Reflector Driller And Deburrer Name Role Phone Jacques Renee MD Primary Care Provider [phone] Allergies No known active allergies Medications MULTIVITS W-FE,OTHER MIN/LUT (CENTRUM SILVER ULTRA WOMEN'S ORAL) Take by mouth. Activ e pEG 400-propylene glycol (SYSTANE, PF,) 0.4-0.3 % solution 1 Drop every 2 hours. Active fluticasone (FLONASE) 50 mcg/spray [place], Suspension Administer 2 Sprays in each nostril daily. Active 0mega-3 fatty acids-vitamin E (FISH OIL) 1,000 mg Capsule Take 1,000 mg by mouth. Active calcium carbonate (TUMS) 200 mg (500 mg) Tablet, Chewable Take 500 mg by mouth 3 times daily with meals. Active Cholecalciferol , Vitamin D3, (VITAMIN D3) 400 unit capsule Take 400 Units by mouth. Active metaxalone (SKELAXIN) 400 mg tablet Take 400 mg by mouth 3 times daily. Active azelastine (ASTEPRO) 0.15 % (205.5 mcg) nasal spray Administer in each nostril. Active ALPRAZolam (XANAX) 0.25 mg tablet Take 0.25 mg by mouth nightly as needed. Active Active Problems Patient Care Coordination No te Formatting of this note migh t be different from the original. 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 BIRADS 3 05/04/2014 [facility]. Six-month recommended October 2014. Increased in number. Biopsy done --> benign Family History Medical History Relation Name Comments Colon Cancer Father Stroke Father Diabetes Mother Heart Failure Mother Lung Cancer Mother Diabetes Paternal Grandfather Relation Name Status Comments Father Mother Paternal Grandfather Social History Tobacco Use Types Packs/Day Years Used Date Smoking Tobacco: Never Smokeless Tobacco: Never Alcohol Use Standard Drinks/Week Comments Yes 6.7 (1 standard drink = 0.6 oz p ure alcohol) Comments No Sex and Gender Information Value Date Recorded Sex Assigned at Not on file Legal Sex Female 1:54 PM CDT Gender Identity Not on file Sexual Orientation Not on file Last Filed Vital Signs Vital Sign Reading Time Taken Comments Blood Pressure 110/66 11/04/2014 11:25 AM CDT Pulse 64 11/04/2014 11:25 AM CDT Temperature - - Respiratory Rate - - Oxygen Saturation - - Inhaled Oxygen Concentration - - Weight 68 kg (150 lb) 11/04/2014 11:25 AM CDT Height 165.1 cm (5' 5 ) 11/04/2014 11:25 AM CDT Body Mass Index 24.96 11/04/2014 11:25 AM CDT Plan of Treatment Health Maintenance Due Date Last Done Comments DTAP/TDAP/TD VACCINES (1 - Tdap) 1973 COLORECTAL SCREENING 1999 Colorectal Cancer Screening 1999 FIT-DNA Q 3 years 1999 FIT/FOBT Q 1 year 1999 Flex Sig/CT Colonography Q 5 years 1999 PNEUMOCOCCAL VACCINE 50+ YEA RS (1 of 1 - PCV) 2004 ZOSTER VACCINE (1 of 2) 2004 BREAST CANCER SCREENING 11/02/2015 11/02/19 15, 05/03/2014, 10/28/2013, Additional history exists OSTEOPOROSIS SCREENING 2019 INFLUENZA VACCINE (#1) 2024 RSV VACCINE (60+ or ) (1 - 1-dose 75+ series) 2029 Procedures Procedure Name Priority Date/Time Associated Diagnosis Comments MAMMO DIAGNOSTIC BILATERAL W OR WO CAD Routine 11/01/2014 from Last 3 Months or Most Recently Relevant to Health Maintenance Results * MAMMO DIGITAL DIAG BILAT (11/01/2014) Anatomical Region Laterality Modality Breast Bilateral Other Alicja Ross MD MAMMO ORDERABLES Edited Res ult - Final from Last 3 Months or Most Recently Relevant to Health Maintenance Insurance [facility] BLUE ACCESS CHOICE [employer] O OPEN ACCESS Care Teams Reflector Driller And Deburrer Relationship Specialty Start Date End Date Jacques Renee MD PCP - General Internal Medicine 11/10/13
== END 2024-10-08 10:06 | disposition home or self-care (01) ==
PROVIDERS: PCP Obstetrics & Gynecology; Visit Provider Obstetrics & Gynecology
DX: Z12.31 Encounter for screening mammogram for malignant neoplasm of breast (principal)
CPT/HCPCS: 77063; 77067